=== PATIENT | female | born 1985 | race Caucasian/White ===

== ENCOUNTER → 2017-04-19 15:42 | Outpatient (CLI) | payer OTHER, SELFPAY ==
[2017-04-19 16:42] LABS: Basophils % 0.3 % (0.1-2.0); Eosinophils # 0.2 K/mm3 (0.0-0.4); Eosinophils % 2.5 % (0.1-12.0); Hematocrit 36.6 % (37.0-47.0); Hemoglobin 12.4 g/dL (12.2-16.2); Lymphocytes # 2.6 K/mm3 (0.7-4.5); Lymphocytes % 31.4 K/mm3 (10-50); Mean Corpuscular Hemoglobin 29.9 pg (27.0-31.2); Mean Corpuscular Volume 88.2 fl (81-99); Mean Platelet Volume 7.9 fl (7.4-10.4); Monocytes # 0.4 K/mm3 (0.1-1.0); Monocytes % 4.9 % (1.7-9.3); Neutrophils # 5.1 K/mm3 (1.8-7.8); Neutrophils % 60.8 % (37.0-80.0); Platelet Count 244 K/mm3 (142-424); Red Blood Count 4.15 M/mm3 (4.20-5.40); Red Cell Distribution Width 13.2 % (11.5-17.5); White Blood Count 8.4 K/mm3 (4.8-10.8)
[2017-04-21 19:05] LABS: HIV Screen 4th Generation wRfx Non Reactive (Non Reactive); Rapid Plasma Reagin Ab Titer Non Reactive (NonRea<1:1)
[2017-04-21 19:06] LABS: Hepatitis B Surface Antigen Negative (Negative); Hepatitis C Antibody <0.1 s/co ratio (0.0-0.9); Rubella Antibodies, IgG 6.79 index (Immune >0.99)
== END ==
PROVIDERS: PCP Family Medicine; Visit Provider Nurse Practitioner Obstetrics & Gynecology
DX: Z34.90 Encounter for supervision of normal pregnancy, unspecified, unspecified trimester (principal)
CPT/HCPCS: 36415; 85025; 86592; 86703; 86762; 86850; 87340; 87380; G0432

== ENCOUNTER → 2017-05-03 12:24 | Outpatient (CLI) | payer OTHER, SELFPAY ==
[2017-05-03 13:17] LABS: HCG,Quantitative 32952 mIU/mL
== END ==
PROVIDERS: Visit Provider Nurse Practitioner Obstetrics & Gynecology
DX: Z34.90 Encounter for supervision of normal pregnancy, unspecified, unspecified trimester (principal); Z3A.01 Less than 8 weeks gestation of pregnancy
CPT/HCPCS: 36415; 84702

== ENCOUNTER → 2017-05-05 08:10 | Outpatient (CLI) | payer OTHER, SELFPAY ==
[2017-05-05 09:26] LABS: HCG,Quantitative 29883 mIU/mL
== END ==
PROVIDERS: Visit Provider Nurse Practitioner Obstetrics & Gynecology
DX: Z34.90 Encounter for supervision of normal pregnancy, unspecified, unspecified trimester (principal)
CPT/HCPCS: 36415; 84702

== ENCOUNTER 2017-05-07 09:46 | Day surgery (SDC) | payer OTHER, SELFPAY ==
[2017-05-07] VITALS (11 sets, daily range): BP systolic 110–129; BP diastolic 61–86; PULSE 60–98; RESP 12–24; TEMP 36.4–36.6; O2SAT 95–100; BMI 24.8
[2017-05-07 10:40] LABS: Basophils % 0.2 % (0.1-2.0); Eosinophils # 0.2 K/mm3 (0.0-0.4); Eosinophils % 2.2 % (0.1-12.0); Hematocrit 44.5 % (37.0-47.0); Hemoglobin 14.8 g/dL (12.2-16.2); Lymphocytes # 2.1 K/mm3 (0.7-4.5); Lymphocytes % 25.2 K/mm3 (10-50); Mean Corpuscular HGB Conc 33.2 g/dL (31.8-35.4); Mean Corpuscular Hemoglobin 30.2 pg (27.0-31.2); Mean Corpuscular Volume 91.1 fl (81-99); Mean Platelet Volume 7.3 fl (7.4-10.4); Monocytes # 0.4 K/mm3 (0.1-1.0); Monocytes % 5.3 % (1.7-9.3); Neutrophils # 5.5 K/mm3 (1.8-7.8); Neutrophils % 67.1 % (37.0-80.0); Platelet Count 268 K/mm3 (142-424); Red Blood Count 4.89 M/mm3 (4.20-5.40); Red Cell Distribution Width 13.2 % (11.5-17.5); White Blood Count 8.2 K/mm3 (4.8-10.8)
[2017-05-07 10:46] LABS: Anion Gap -0.6 mEq/L (5-15); Blood Urea Nitrogen 12 mg/dL (7-18); Carbon Dioxide 28 mmol/L (21.0-32.0); Chloride 101 mmol/L (98-107); Creatinine Clearance Estimated 112 mL/min (0-300); Creatinine,Serum 0.79 mg/dL (0.55-1.02); Estimated Glomerular Filt Rate 84 ml/min (>60); GFR (African American) 101 ML/MIN (>60); Glucose 84 mg/dL (74-106); Potassium 3.4 mmoL/L (3.5-5.1); Sodium 125 mmol/L (136-145)
--- NOTE | 2017-05-07 12:08 | HMH.ANESCL ---
[facility] Anesthesia Checklist - Structural Data Admitted From: Home Planned Operative Procedure/s: d/e Consent for Planned Operative Procedure(s) Verified: Yes Verified Documents: Surgical Consent - Airway Assessment C-Spine Mobility Assessed: Yes TMJ Mobility Assessed: Yes Dentition: Good Dentition - Neurological Assessment Level of Consciousness: Awake, Alert - Anesthesia Plan Anesthesia Risk discussed: Yes Anesthesia Plan: Verified ASA Class: I Anesthesia Type: General [facility] Anesthesia HX I have reviewed the patient's past medical history: Yes Medical History: Denies:: Anxiety, Cancer, Diabetes Mellitus Type 1, Diabetes Mellitus Type 2, Hypertension, MRSA, Seizures Other Medical History: Reports: Thyroid Disease. Denies: Blood Transfusion Reaction Amputation: No Fractures: No *Family Hx:: Thyroid Disorder, Hypertension, Hyperlipidemia, Asthma, Cancer, Diabetes
--- NOTE | 2017-05-07 12:10 | P.PN_ITS ---
[facility] Anesthesia Record Part II Discharge Time: 12:35 Destination: [facility] PACU nurse assessment reviewed?: Yes Patient Condition:: Good Anesthesia Complications:: None
--- NOTE | 2017-05-07 12:10 | P.PN_ITS ---
[facility] Anesthesia Record Part I Intake, IV Amount: 700 Estimated blood loss (mL): 50 Urine output (mL): 25 Blood Pressure: 114/61 SaO2: 98 Pulse Rate: 61 Respiratory Rate: 12 Temperature: 97.5 F Patient is:: Awake, Stable Stable to PACU at:: 12:05
--- NOTE | 2017-05-07 12:10 | HMH.ANESII ---
[facility] Anesthesia Record Part II Discharge Time: 12:35 Destination: [facility] PACU nurse assessment reviewed?: Yes Patient Condition:: Good Anesthesia Complications:: None
--- NOTE | 2017-05-09 08:53 | P.OP_ITS ---
Date of procedure: 05/07/17 Pre-op Diagnosis:: Missed Post-op Diagnosis:: Missed Procedure performed:: Dilation and evacuation with [place] suction Surgeon:: Jay Godfrey MD PANEL MONITOR:: Quintin Burrell Anesthesia: LMA Estimated blood loss (mL): 50 Clinical Note:: She is a 31-year-old 2 para 1 who was approximately 8 weeks gestational age. She was seen in my office and had an ultrasound that showed a fetus approximately 6 weeks and 4 there was no heart rate activity. We decided to follow her beta hCGs over couple of days and these have gone down. Repeat on morning shows no heart rate activity. The fetus looked quite hydropic. As result of that she was offered dilation and evacuation. Risks and benefits of surgery were discussed with the patient prior to surgery. Operative findings:: She is known to have a bicornuate uterus. The fetus was on the left side of the uterus. The uterus itself was bulky and anteverted. Operative note:: She was taken to the operating room where LMA anesthesia was found be adequate. She was prepped and draped in the normal sterile fashion in the lithotomy position. A weighted speculum was placed in the vagina and the anterior lip of the cervix was grasped with a tenaculum. Sauceda dilators used to dilate the cervix to approximately 9 mm. I made sure that I was in the left hand side of the cornua where the fetus was located. Using a 9 mm curved [place] suction curette I evacuated the contents with good return of tissue. This was followed by a gentle curettage. She tolerated the procedure well and was taken to the recovery room in excellent condition. All sponge and instrument counts were correct. The estimated blood loss was less than 50 cc. Condition: stable Disposition: PACU Specimens:: Products of conception Complications:: None
== END 2017-05-07 13:45 | disposition home or self-care (01) ==
LOC: OR 09:47
PROVIDERS: PCP Family Medicine; Visit Provider Nurse Practitioner Obstetrics & Gynecology
PROC: (CPT 59820; principal; 2017-05-07 11:30)
DX: O02.1 Missed abortion (principal)
CPT/HCPCS: 59820; 80048; 85025; 96372; 96374; J2405

== ENCOUNTER → 2017-08-03 15:40 | Outpatient (CLI) | payer OTHER, SELFPAY ==
--- NOTE | 2017-08-03 15:42 | US_ITS ---
US transvaginal HISTORY: ITS.REASON: check for retained product ORDERING PHYSICIAN: Swati Xiao MD PATIENT AGE: 31 years Comparison: FINDINGS: The uterus measures 11 x 5 x 6 cm. Combined endometrial thickness is 11 mm. In the mid to lower aspect of the endometrial canal there is linear area of bright echogenicity with posterior acoustical shadowing. There is some minimal areas of increased echogenicity more inferior to this region within the endometrium in the lower uterine segment. This may be related to gas within the endometrium. The patient does not have an IUD which could also cause this appearance. Short-term follow-up recommended to confirm resolution. The patient has had manipulation of the cervix with removal of possible products of conception earlier this day. The right ovary is 3 x 1.7 cm. The left ovary is 2.4 x 1.6 cm. No cul-de-sac fluid apparent. IMPRESSION: Mildly enlarged uterus with an increased echogenicity within the endometrium in the mid and lower segment with posterior acoustical shadowing which may be related to endometrial gas. Follow-up suggested to confirm resolution
== END ==
PROVIDERS: PCP Family Medicine; Visit Provider Obstetrics & Gynecology
DX: R10.9 Unspecified abdominal pain (principal); R10.2 Pelvic and perineal pain; O73.1 Retained portions of placenta and membranes, without hemorrhage; N93.9 Abnormal uterine and vaginal bleeding, unspecified
CPT/HCPCS: 76830

== ENCOUNTER → 2017-08-21 13:43 | Outpatient (CLI) | payer OTHER, SELFPAY ==
[2017-08-21 13:45] LABS: Microscopic, Urine URINE MICROSCOPIC (MICROSCOPIC)
[2017-08-21 14:02] LABS: Appearance,Urine SL CLOUDY (Clear); Bilirubin,Urine Negative (Negative); Blood, Urine 1+ (Negative); Color,Urine YELLOW (Yellow); Glucose,Urine (UA) Negative (Negative); Ketones,Urine Negative (Negative); Leukocyte Esterase,Urine 1+ (Negative); Nitrate,Urine Negative (Negative); Protein,Urine Negative (Negative); Urobilinogen,Urine 0.2 EU/dl (0.2)
[2017-08-21 14:17] LABS: Bacteria,Urine 1+ /lpf; Squamous Epithelial Cell,Urine Occasional #/hpf (0-5)
== END ==
PROVIDERS: Visit Provider Urology
DX: R10.9 Unspecified abdominal pain (principal); R10.2 Pelvic and perineal pain
CPT/HCPCS: 81001; 87086; 87088; 87186

== ENCOUNTER → 2018-06-13 08:14 | Outpatient (CLI) | payer OTHER, SELFPAY ==
--- NOTE | 2018-06-13 08:17 | US_ITS ---
US abdomen limited History:Right upper quadrant pain with nausea Ordering Physician:Ras Maravilla MD Patient Age: 32 years Comparison:None Findings: Pancreas:Unremarkable. No obvious mass or abnormal fluid collection. No ductal dilatation Liver:Unremarkable. No obvious mass or abnormal fluid collection. No ductal dilatation Right Kidney:Unremarkable. Normal size and echogenicity. No hydronephrosis Gallbladder:No gallstones, gallbladder wall thickening, pericholecystic fluid, or biliary dilatation. There are some low-level echoes within the gallbladder which could be due to concentrated bile or small amount of sludge Impression: Low level gallbladder echoes which may be due to small amount sludge or concentrated bile of questionable clinical significance otherwise Unremarkable gallbladder/right upper quadrant ultrasound
== END ==
PROVIDERS: PCP Family Medicine; Visit Provider Family Medicine
DX: R11.0 Nausea (principal)
CPT/HCPCS: 76705

== ENCOUNTER → 2019-02-21 08:31 | Outpatient (CLI) | payer OTHER, SELFPAY ==
--- NOTE | 2019-02-21 08:34 | US_ITS ---
PROCEDURE: US TRANSVAGINAL CLINICAL INDICATION: c/o pelvic pain/bloating ER status calculus COMPARISON: TRANVAG US transvaginal from 08/03/2017 FINDINGS: UTERUS: 8cm x 5cmx 3cm with a combined endometrial thickness of 5.8mm LEFT OVARY: [id number] with a volume of 11.5ml. RIGHT OVARY: [id number] with a volume of 9.8ml. Incidental note is made of a bicornuate uterus. No uterine mass evident. There is a nabothian cyst at 15 mm. There is a small amount of cul-de-sac fluid. There are small bilateral ovarian follicles. There is bilateral ovarian blood flow. IMPRESSION: Bicornuate uterus with small amount of fluid in the cul-de-sac and small bilateral ovarian follicles. No dominant ovarian cyst evident Dictated by: Kurtis Emery MD 02/21/2019 15:26 Electronically signed by Kurtis Emery MD in [place] 02/21/2019 15:26
--- NOTE | 2019-02-21 15:39 | CT_ITS ---
PROCEDURE: CT ABDOMEN PELVIS WO CON CLINICAL INDICATION: LOWER ABD PAIN Lower abdominal pain and bloating, hematuria COMPARISON: No exams were available for comparison TECHNIQUE: Axial images obtained with sagittal and coronal reformats. All CT scans at the facility use one or more dose reduction, viz: automated exposure control, ma/kV adjustment per patient size (including targeted exams where dose is matched to indication, i.e. head), or iterative reconstruction technique. FINDINGS: LOWER THORAX: There are mild atelectatic changes in the left lung base posteriorly. Bilateral breast implants are noted. Abdomen and pelvis: The liver, gallbladder, spleen, adrenal glands, pancreas, and kidneys have an unremarkable unenhanced appearance. No renal or ureteral calculi. No hydronephrosis. There are few scattered small mesenteric and retroperitoneal lymph nodes which are nonspecific. There is a small umbilical hernia which contains fat. The appendix has an unremarkable appearance There is diverticulosis of the descending and sigmoid colon with moderate thickening of the sigmoid colon and stranding of the pericolic fat consistent with acute diverticulitis. No abscess or perforation evident. Hyperdensity is noted within the few sigmoid diverticula. There is a small amount of fluid in the cul-de-sac. No acute bony anomalies. Bulging disc is present at L5-S1 with small central disc protrusion slightly eccentric to the right. IMPRESSION: 1. Acute diverticulitis of the sigmoid colon. No evidence of abscess or perforation. There is a small amount fluid in the cul-de-sac. Diverticulosis of the descending and sigmoid colon 2. Scattered small mesenteric and retroperitoneal lymph nodes nonspecific. Dictated by: Kurtis Emery MD 02/21/2019 16:26 Electronically signed by Kurtis Emery MD in [place] 02/21/2019 16:26
[2019-02-21 16:18] LABS: Basophils % 0.2 % (0.1-2.0); Eosinophils # 0.2 K/mm3 (0.0-0.4); Eosinophils % 1.7 % (0.1-12.0); Hematocrit 42.1 % (37.0-47.0); Hemoglobin 14.2 g/dL (12.2-16.2); Lymphocytes # 2.3 K/mm3 (0.7-4.5); Lymphocytes % 17.2 % (10-50); Mean Corpuscular HGB Conc 33.7 g/dL (31.8-35.4); Mean Corpuscular Hemoglobin 30.2 pg (27.0-31.2); Mean Corpuscular Volume 89.4 fl (81-99); Mean Platelet Volume 8.1 fl (7.4-10.4); Monocytes # 0.8 K/mm3 (0.1-1.0); Monocytes % 5.9 % (1.7-9.3); Neutrophils # 9.9 K/mm3 (1.8-7.8); Neutrophils % 74.9 % (37.0-80.0); Platelet Count 286 K/mm3 (142-424); Red Blood Count 4.71 M/mm3 (4.20-5.40); Red Cell Distribution Width 12.5 % (11.5-17.5); White Blood Count 13.2 K/mm3 (4.8-10.8)
[2019-02-21 16:52] LABS: Alanine Aminotransferase 12 U/L (12-78); Albumin Level 3.7 gm/dL (3.4-5.0); Albumin/Globulin Ratio 1.1 (1.1-1.8); Alkaline Phosphatase 66 U/L (46-116); Anion Gap 13.6 mEq/L (5-15); Aspartate Amino Transferase 8 U/L (15-37); Bilirubin,Total 0.7 mg/dL (0.2-1.0); Carbon Dioxide 30 mmol/L (21.0-32.0); Chloride 100 mmol/L (98-107); Creatinine,Serum 0.97 mg/dL (0.55-1.02); Estimated Glomerular Filt Rate 65 ml/min (>60); GFR (African American) 79 ML/MIN (>60); Globulin 3.4 gm/dl (1.3-3.2); Glucose 88 mg/dL (74-106); Potassium 3.6 mmoL/L (3.5-5.1); Sodium 140 mmol/L (136-145); Total Protein,Serum 7.1 gm/dL (6.4-8.2)
[2019-02-21 17:00] LABS: Blood Urea Nitrogen 20 mg/dL (7-18)
== END ==
PROVIDERS: PCP Family Medicine; Visit Provider Nurse Practitioner Obstetrics & Gynecology
DX: R10.2 Pelvic and perineal pain (principal)
CPT/HCPCS: 36415; 74176; 76830; 80053; 85025

== ENCOUNTER 2019-07-11 17:55 | Emergency (ER) | payer OTHER, SELFPAY ==
[2019-07-11 17:56] VITALS: BP 159/80; PULSE 73; RESP 16; O2SAT 100; BMI 25.0
--- NOTE | 2019-07-11 17:58 | ECG_ITS ---
APPROVED REPORT Exam: Resting ECG HR:70 bpm ECG Measurements Heart Rate 70 AXES MT 156 P 67 QRSd 98 QRS 14 QT 406 T 70 QTc 438 <Conclusion> Sinus rhythm with sinus arrhythmia with premature ventricular complexes or fusion complexes Otherwise normal ECG Electronically signed by : Rodney Bailon, 07/12/2019 22:24:26
--- NOTE | 2019-07-11 18:01 | CT_ITS ---
PROCEDURE: CT ANGIO CHEST CLINCIAL INDICATION: chest pain Centralized chest pain radiating into the throat with shortness of air, previous smoker COMPARISON: No exams were available for comparison TECHNIQUE: IV Contrast: 70ML OPTIRAY 350 Axial images obtained with sagittal and coronal reformats. All CT scans at the facility use one or more dose reduction, viz: automated exposure control, ma/kV adjustment per patient size (including targeted exams where dose is matched to indication, i.e. head), or iterative reconstruction technique. FINDINGS: HEART AND MEDIASTINAL STRUCTURES: Unremarkable. LUNGS AND PLEURAL SPACES: No lobar consolidation or collapse. There are minimal atelectatic changes in left lung base. BONY STRUCTURES: No acute bony abnormalities apparent. UPPER ABDOMEN: Unremarkable. ADDITIONAL FINDINGS: There are bilateral subpectoral breast prosthesis IMPRESSION: No acute finding Dictated by: Kurtis Emery MD 07/11/2019 20:52 Electronically signed by Kurtis Emery MD in [facility] 07/11/2019 20:52
--- NOTE | 2019-07-11 18:05 | PC.NURSE ---
UPON ARRIVAL TO ED, PT RATED PAIN 6/10. PT NOW STATES THAT THE PAIN HAS SUBSIDED. PT STILL SEEMS FATIGUED. PT AMBULATING TO BATHROOM AT THIS TIME TO PROVIDE A URINE SAMPLE.
[2019-07-11 18:13] LABS: Basophils # 0.1 K/mm3 (0-0.2); Basophils % 0.5 % (0.1-2.0); Eosinophils # 0.3 K/mm3 (0.0-0.4); Eosinophils % 2.9 % (0.1-12.0); Hematocrit 37.4 % (37.0-47.0); Hemoglobin 14.7 g/dL (12.2-16.2); Lymphocytes # 4.1 K/mm3 (0.7-4.5); Lymphocytes % 38.3 % (10-50); Mean Corpuscular HGB Conc 39.2 g/dL (31.8-35.4); Mean Corpuscular Volume 86.7 fl (81-99); Mean Platelet Volume 7.9 fl (7.4-10.4); Monocytes # 0.6 K/mm3 (0.1-1.0); Monocytes % 5.6 % (1.7-9.3); Neutrophils # 5.6 K/mm3 (1.8-7.8); Neutrophils % 52.8 % (37.0-80.0); Platelet Count 269 K/mm3 (142-424); Red Blood Count 4.32 M/mm3 (4.20-5.40); Red Cell Distribution Width 14.2 % (11.5-17.5); White Blood Count 10.6 K/mm3 (4.8-10.8)
[2019-07-11 18:13] LABS: Microscopic, Urine URINE MICROSCOPIC (MICROSCOPIC)
[2019-07-11 18:17] LABS: Appearance,Urine CLEAR (Clear); Bilirubin,Urine Negative (Negative); Blood, Urine Negative (Negative); Color,Urine YELLOW (Yellow); Glucose,Urine (UA) Negative (Negative); Ketones,Urine Negative (Negative); Leukocyte Esterase,Urine Negative (Negative); Nitrate,Urine Negative (Negative); Protein,Urine Negative (Negative); Specific Gravity, Urine 1.015 (1.005-1.030); Urobilinogen,Urine 0.2 EU/dl (0.2)
[2019-07-11 18:19] LABS: Amylase 87 U/L (30-110); Lipase 144 U/L (23-300)
[2019-07-11 18:19] LABS: Urine Pregnancy, HCG Qual. Negative (Negative)
--- NOTE | 2019-07-11 18:20 | PC.NURSE ---
REASSESSED PT'S PAIN... PT STATES THAT PAIN IS STILL NON EXISTENT AT THIS TIME. PT RESTING UPRIGHT IN BED.
[2019-07-11 18:21] LABS: RBC,Urine Occasional #/hpf (0-3); Squamous Epithelial Cell,Urine Occasional #/hpf (0-5)
--- NOTE | 2019-07-11 18:36 | PC.NURSE ---
Patient to radiology.
[2019-07-11 18:40] LABS: Troponin I < 0.01 ng/ml (0.00-0.034)
--- NOTE | 2019-07-11 18:41 | HMH.EDCP ---
ED Disposition Clinical Impression: Chest pain, Atypical chest pain, Panic attack as reaction to stress Disposition: Still a Patient Condition on Discharge: Good Additional Instructions: Work excuse to come back next Sunday Prescriptions: LORazepam [Ativan 1mg tablet] 1 mg PO TID PRN 8 Days #26 tablet PRN Reason: Agitation Pantoprazole Sodium [Protonix 40mg tablet] 40 mg PO DAILY 30 Days #30 tab Transmission Status: Pending to [facility] Sertraline HCl [Zoloft 50mg tablet] 50 mg PO DAILY 30 Days #30 tab Transmission Status: Pending to [facility] Referrals: Provider,Referral, [Referring] - - Critical Care Critical Care Time: No Attestation: On , the high probability of a clinically significant, sudden or life threatening deterioration of the following system(s) required my full and direct attention, intervention and personal management. The time I documented below is in addition to time spent performing reported procedures but includes the following listed in this critical care notation. Medical Decision Making - Medical Records Medical records reviewed: Yes: I reviewed the patient's medical records. - Jose Angel Inquiry Pt receiving controlled substance: No Vital Signs: 07/11/19 17:56 07/11/19 19:03 Pulse Rate [Radial] 73 71 Respiratory Rate 16 18 Blood Pressure [Right Arm] 159/80 H 138/95 H Blood Pressure Mean [Right Arm] 106 109 Blood Pressure Source [Right Arm] Automatic Cuff Blood Pressure Position [Right Arm] Sitting Sitting 02 Sat by Pulse Oximetry 100 98 Oxygen Delivery Method Room Air Room Air - Lab Data Lab results reviewed: Yes: I reviewed the patient's lab results. Lab Results 07/11/19 18:00: WBC 10.6, RBC 4.32, Hgb 14.7, Hct 37.4, MCV 86.7, MCH 34.0 H, MCHC 39.2 H, RDW 14.2, Plt Count 269, MPV 7.9, Neut % (Auto) 52.8, Lymph % (Auto) 38.3, Bradley % (Auto) 5.6, Eos % (Auto) 2.9, Baso % (Auto) 0.5, Neut # (Auto) 5.6, Lymph # (Auto) 4.1, Bradley # (Auto) 0.6, Eos # (Auto) 0.3, Baso # (Auto) 0.1 07/11/19 18:00: Troponin I < 0.01, Amylase 87, Lipase 144 07/11/19 18:00: TSH 6.62 H 07/11/19 18:00: Sodium 137, Potassium 3.8, Chloride 100, Carbon Dioxide 29, Anion Gap 11.8, BUN 25 H, Creatinine 1.20 H, Estimated Creat Clear 73, Estimated GFR 51 L, Est GFR ( Amer) 62, Glucose 95, Calcium 10.1 07/11/19 18:10: Urine Color Yellow, Urine Appearance Clear, Urine pH 8.0, Ur Specific Holly 1.015, Urine Protein Negative, Urine Glucose (UA) Negative, Urine Ketones Negative, Urine Blood Negative, Urine Nitrate Negative, Urine Bilirubin Negative, Urine Urobilinogen 0.2, Ur Leukocyte Esterase Negative, Urine RBC Occasional, Urine WBC None, Ur Squamous Epith Cells Occasional, Urine Bacteria None 07/11/19 18:10: Urine HCG, Qual Negative Result diagrams: 07/11/19 18:00 07/11/19 18:00 Orders (Tests/Meds): ED MEDICATIONS Generic Name Dose Route Start Last Admin Trade Name Freq PRN Reason Stop Dose Admin Sodium Chloride 1,000 mls @ 999 mls/hr 07/11/19 19:15 07/11/19 19:08 Sod Chlor 0.9% 1000ml Bag IV 07/11/19 20:15 999 mls/hr .Q1H1M DENA Administration Sodium Chloride 10 ml 07/11/19 18:02 07/11/19 18:10 Sodium Chloride 0.9% 10ml Vial IV 08/10/19 18:01 10 ml NEEDED PRN Administration to Dilute Lorazepam inj Sodium Chloride 10 ml 07/11/19 18:04 Sodium Chloride 0.9% 10ml Vial IV 08/10/19 18:03 NEEDED PRN dilute protonix Discontinued Medications Generic Name Dose Route Start Last Admin Trade Name Freq PRN Reason Stop Dose Admin Aspirin 324 mg 07/11/19 18:04 07/11/19 18:09 Aspirin 81mg Chewable Tablet PO 07/11/19 18:05 324 mg ONCE ONE Administration Ioversol 70 ml 07/11/19 18:57 07/11/19 18:58 Rad-Optiray 350 100ml Vial IV 07/11/19 18:58 70 ml ONCE ONE Administration Protocol Lorazepam 0.5 mg 07/11/19 18:02 07/11/19 18:09 Ativan 2mg/Ml Vial IV 07/11/19 18:03 0.5 mg ONCE ONE Admini
[2019-07-11 18:43] LABS: Anion Gap 11.8 mEq/L (5-15); Blood Urea Nitrogen 25 mg/dl (7-17); Calcium 10.1 mg/dl (8.4-10.2); Carbon Dioxide 29 mmol/L (22.0-30.0); Chloride 100 mmol/L (98-107); Creatinine Clearance Estimated 73 mL/min (50-200); Estimated Glomerular Filt Rate 51 ml/min (>60); GFR (African American) 62 ML/MIN (>60); Glucose 95 mg/dl (74-100); Potassium 3.8 mmoL/L (3.5-5.1); Sodium 137 mmol/L (136-145)
[2019-07-11 18:55] LABS: Thyroid Stimulating Hormone 6.62 uIU/mL (0.465-4.68)
[2019-07-11 19:03] VITALS: BP 138/95; PULSE 71; RESP 18; O2SAT 98
[2019-07-11 20:36] VITALS: BP 134/64; PULSE 70; RESP 16; TEMP 36.7; O2SAT 100
== END 2019-07-11 20:20 | disposition home or self-care (01) ==
PROVIDERS: Emergency Provider Family Medicine; PCP Family Medicine
DX: R07.89 Other chest pain (principal); F41.0 Panic disorder [episodic paroxysmal anxiety]; E03.9 Hypothyroidism, unspecified; F17.210 Nicotine dependence, cigarettes, uncomplicated; Z79.899 Other long term (current) drug therapy
CPT/HCPCS: 71275; 80048; 81001; 81025; 82150; 83690; 84443; 84484; 85025; 93005; 96365; 96375; 99284; Q9967

== ENCOUNTER → 2019-07-21 08:58 | Outpatient (CLI) | payer OTHER, SELFPAY ==
--- NOTE | 2019-07-21 | CA_ITS ---
APPROVED REPORT EXAM: Comprehensive 2D, Doppler, and color-flow Echocardiogram [employer] Inspector: Brittni Martinez, RT(R) Ht: 5 ft 6 in Wt: 157lbs BSA: 1.80 BP: 138/59 mmHg Indications: PVC's, history of smoking, Headache, anxiety, ordered as a bubble study Echo Enhancing Agent Indication: Rule Out Septal Defect Agent(s) / Amount(s) Used: Agitated Saline 15 cc 2D Dimensions LVOT 2.04 cm (M/F) 1.5-2.5 M-Mode Dimensions RVDd 2.07 cm (0.9-2.6) LVDd 4.82 cm (3.5-5.7) LVDs 3.54 cm (3.5-5.7) IVSd 0.88 cm (0.6-1.1) PWd 0.66 cm (0.6-1.1) EF (Teich) 51.80% FS 26.60% EDV (Teich) 108.60 mL ESV (Teich) 52.30 mL Left Ventricle Left atrium is normal size, left ventricle is normal size, there is no concentric left ventricular hypertrophy, visually estimated ejection fraction 55% with no regional wall motion abnormality. Diastolic parameters are inconclusive. Right Ventricle Right atrium and right ventricular normal size and contractility. Atria Intra-atrial septum is intact, there is no flow across the atrial septum, agitated saline contrast study fails to identify intracardiac shunt. Aortic Valve Aortic valve is grossly normal, there is no aortic stenosis or aortic insufficiency. Mitral Valve Mitral valve is grossly normal, there is mild mitral regurgitation. Tricuspid Valve Tricuspid valve grossly normal, there is mild tricuspid regurgitation. Tricuspid regurgitation jet velocity is inadequate for calculation of the right ventricular systolic pressure. Pulmonic Valve Pulmonic valve is poorly visualized. Great Vessels Aortic root is normal size. Pericardium No significant pericardial effusion noted. Conclusion 1. Technically difficult study because of the patient fact in poor acoustic windows 2. Normal left ventricular size, preserved left ventricular systolic function, visually estimated ejection fraction 55% with no regional wall motion abnormality, diastolic parameters are inconclusive. 3. Mild mitral and tricuspid regurgitation. 4. No significant pericardial effusion noted. Electronically signed by : Juan Lutz, 07/21/2019 21:03:48
== END ==
PROVIDERS: PCP Internal Medicine Adolescent Medicine; Visit Provider Internal Medicine Adolescent Medicine
DX: I49.3 Ventricular premature depolarization (principal)
CPT/HCPCS: 93306

== ENCOUNTER → 2020-01-13 18:46 | Outpatient (CLI) | payer OTHER, SELFPAY ==
[2020-01-13 20:49] LABS: Alanine Aminotransferase 14 U/L (12-78); Albumin Level 4.8 g/dl (3.5-5.0); Albumin/Globulin Ratio 1.7 (1.1-1.8); Alkaline Phosphatase 76 U/L (38-126); Anion Gap 16.2 mEq/L (5-15); Aspartate Amino Transferase 27 U/L (14-36); Bilirubin,Total 0.4 mg/dl (0.2-1.3); Blood Urea Nitrogen 19 mg/dl (7-17); Calcium 9.7 mg/dl (8.4-10.2); Carbon Dioxide 29 mmol/L (22.0-30.0); Chloride 98 mmol/L (98-107); Estimated Glomerular Filt Rate 56 ml/min (>60); GFR (African American) 68 ML/MIN (>60); Globulin 2.8 g/dL (1.3-3.2); Glucose 58 mg/dl (74-100); Potassium 4.2 mmoL/L (3.5-5.1); Sodium 139 mmol/L (136-145); Total Protein,Serum 7.6 g/dl (6.3-8.2)
[2020-01-13 21:05] LABS: T4 (Thyroxine) 8.2 ug/dl (5.53-11.0); Triiodothryronine (T3) Uptake 36 % (23.5-40.5)
[2020-01-13 21:19] LABS: Thyroid Stimulating Hormone 1.97 uIU/mL (0.465-4.68)
[2020-01-13 21:38] LABS: Vitamin B12 671 pg/mL (239-931)
== END ==
PROVIDERS: Visit Provider Internal Medicine Adolescent Medicine
DX: E03.9 Hypothyroidism, unspecified (principal); I49.3 Ventricular premature depolarization
CPT/HCPCS: 80053; 82607; 84436; 84443; 84479

== ENCOUNTER → 2020-01-22 07:52 | Outpatient (CLI) | payer OTHER, SELFPAY ==
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
== END ==
PROVIDERS: PCP Internal Medicine Adolescent Medicine; Visit Provider Anesthesiology
DX: M54.2 Cervicalgia (principal)
CPT/HCPCS: 72141; 76376

== ENCOUNTER 2020-01-23 13:10 | Day surgery (SDC) | payer OTHER, SELFPAY ==
[2020-01-23 13:10] VITALS: BP 143/95; PULSE 66; RESP 20; O2SAT 96; BMI 28.2
[2020-01-23 13:14] VITALS: BP 125/85; PULSE 85; RESP 18; O2SAT 98
[2020-01-23 13:16] VITALS: BP 133/74; PULSE 89; RESP 18; O2SAT 98
--- NOTE | 2020-01-23 13:21 | HMH.PMPROC ---
- Procedure Date: 01/23/20 Time: 13:21 Anesthesiologist:: Barrett Wang MD Complications:: None Pre-procedure Diagnosis:: Degenerative disc disease of the cervical spine with cervical radiculopathy symptoms Post-procedure Diagnosis:: Same Indications for Procedure:: This patient is a pleasant 34-year-old white female who we are treating for neck pain with cervical radicular symptoms. She does have increasing pain radiating to the right shoulder. She does have muscle spasms down her right side. Her MRI shows 1. C4-C5: Minimal left paracentral disc protrusion and left paracentral ridging of the superior aspect of C5. 2. C5-C6: Mild degenerative disc disease with a broad-based small central and left paracentral disc protrusion. There may be some minimal superior extrusion of the disc at this area as well. The protruding disc is causing compression upon the central and left aspect of the cord with some flattening of the cord and resultant canal stenosis of 8 mm. There is mild left lateral recess narrowing. 3. C6-C7: Small central disc protrusion slightly eccentric toward the left with some mild central and left paracentral flattening of the cord. There is canal stenosis at 9 mm. She is failed previous therapy. We will do a cervical epidural steroid injection today to help her with her pain symptoms. Procedure Details:: Cervical epidural steroid injection under fluoroscopy Informed consent was obtained and the risks and benefits of the procedure was explained to the patient. The patient was taken to the procedure room placed prone on the procedure table. The neck was prepped using ChloraPrep. The skin and subcutaneous tissues were anesthetized using lidocaine. I placed a 18-gauge epidural needle into the C5-C6 interspace and advanced using [id number] to air and fluoroscopic guidance. After confirmation of needle placement in the epidural space with dye, I injected 3 mL's lidocaine 1.5% and Depo-Medrol 80 mg. The patient tolerated the procedure well with no complications. Plan and Disposition:: We will follow-up with her in 2 weeks. Will reevaluate her symptoms at that time.
[2020-01-23 13:25] VITALS: BP 144/95; PULSE 66; RESP 20; O2SAT 96
== END 2020-01-23 13:25 | disposition home or self-care (01) ==
LOC: SC.PAINP 13:11
PROVIDERS: Visit Provider Anesthesiology
DX: M50.10 Cervical disc disorder with radiculopathy, unspecified cervical region (principal); K21.9 Gastro-esophageal reflux disease without esophagitis; E03.9 Hypothyroidism, unspecified; Z72.0 Tobacco use
CPT/HCPCS: 62321; J1040; Q9966

== ENCOUNTER 2020-02-20 12:29 | Day surgery (SDC) | payer OTHER, SELFPAY ==
[2020-02-20 12:37] VITALS: BP 132/74; PULSE 85
[2020-02-20 12:41] VITALS: BP 132/74; PULSE 85; RESP 18; O2SAT 98
--- NOTE | 2020-02-20 12:58 | HMH.PMPROC ---
- Procedure Date: 02/20/20 Time: 12:58 Anesthesiologist:: Barrett Wang MD Complications:: None Pre-procedure Diagnosis:: Degenerative disc disease of cervical spine with cervical radiculopathy symptoms Post-procedure Diagnosis:: Same Indications for Procedure:: This patient is a pleasant 34-year-old white female who we are treating for neck pain with cervical radicular symptoms. She did very well with her last cervical epidural steroid injection. She was 80% better. Her pain started to return in her neck. She presents for repeat cervical epidural steroid injection under fluoroscopy today. Procedure Details:: Cervical epidural steroid injection under fluoroscopy Informed consent was obtained and the risks and benefits of the procedure was explained to the patient. The patient was taken to the procedure room placed prone on the procedure table. The neck was prepped using ChloraPrep. The skin and subcutaneous tissues were anesthetized using lidocaine. I placed a 18-gauge epidural needle into the C5-C6 interspace and advanced using [id number] to air and fluoroscopic guidance. After confirmation of needle placement in the epidural space with dye, I injected 3 mL's lidocaine 1.5% and Depo-Medrol 80 mg. The patient tolerated the procedure well with no complications. Plan and Disposition:: We will follow-up with her in 2 weeks. Will reevaluate symptoms at that time.
[2020-02-20 13:00] VITALS: BP 130/68; PULSE 85; RESP 20; O2SAT 98
[2020-02-20 13:26] VITALS: BP 130/74; PULSE 85; RESP 20; TEMP 36.7; O2SAT 97; BMI 28.0
== END 2020-02-20 13:00 | disposition home or self-care (01) ==
LOC: SC.PAINP 12:30
PROVIDERS: PCP Nurse Practitioner Psychiatric/Mental Health; Visit Provider Anesthesiology
DX: M50.10 Cervical disc disorder with radiculopathy, unspecified cervical region (principal)
CPT/HCPCS: 62321; Q9966

== ENCOUNTER → 2020-05-12 08:28 | Outpatient (CLI) | payer OTHER, SELFPAY ==
[2020-05-12 10:10] LABS: Triiodothryronine (T3) Uptake 35 % (23.5-40.5)
[2020-05-12 10:11] LABS: Free Thyroxine Index 3.5 ug/dL (5.93-13.13); T4 (Thyroxine) 9.9 ug/dl (5.53-11.0)
[2020-05-13 14:22] LABS: Thyroid Peroxidase Antibodies <9 IU/mL (0-34)
== END ==
PROVIDERS: Visit Provider Nurse Practitioner Psychiatric/Mental Health
DX: Z13.29 Encounter for screening for other suspected endocrine disorder (principal); Z79.899 Other long term (current) drug therapy
CPT/HCPCS: 36415; 84436; 84443; 84479; 86376

== ENCOUNTER 2021-03-21 10:53 | Emergency (ER) | payer OTHER, SELFPAY ==
[2021-03-21 11:10] VITALS: BP 128/79; PULSE 92; RESP 18; TEMP 36.6; O2SAT 95; BMI 33.5
[2021-03-21 11:26] LABS: Adenovirus,PCR Not Detected (NotDetected); Bordetella Pertussis Not Detected (NotDetected); Chlamydophila Pneumoniae, PCR Not Detected (NotDetected); Coronavirus 229E Not Detected (NotDetected); Coronavirus NL63 Not Detected (NotDetected); Coronavirus OC43 Not Detected (NotDetected); Coronovirus HKU1,PCR Not Detected (NotDetected); Human Metapneumovirus Not Detected (NotDetected); Influenza A, PCR Not Detected (NotDetected); Influenza AH1, 2009 Not Detected (NotDetected); Influenza AH1, PCR Not Detected (NotDetected); Influenza AH3,PCR Not Detected (NotDetected); Influenza B, PCR Not Detected (NotDetected); Mycoplasma Pneumoniae, PCR Not Detected (NotDetected); Parainfluenza 1, PCR Not Detected (NotDetected); Parainfluenza 2, PCR Not Detected (NotDetected); Parainfluenza 3, PCR Not Detected (NotDetected); Parainfluenza 4, PCR Not Detected (NotDetected); Respiratory Syncytial Virus Not Detected (NotDetected); Rhinovirus/Enterovirus Not Detected (NotDetected)
--- NOTE | 2021-03-21 11:34 | HMH.EDUTC ---
[facility] [place] Clinical Impression: URI (upper respiratory infection) Qualifiers: URI type: unspecified URI Qualified Code(s): J06.9 - Acute upper respiratory infection, unspecified Disposition: Home, Self-Care Condition on Discharge: Good Instructions: Sore Throat, Cough, DI for Cough -- Adult Additional Instructions: *Monitor Temp, Over the counter Motrin or Tylenol as directed/as needed Tylenol every 4 hours and Motrin every 6 hours (as long as your family doctor has told you that you can take it) for fever or pain. and straight to ER if unable to lower temp less than 101.0 after medication given *Warm salt water gargles may help to soothe the throat *Throat Lozenges *Warm fluids like tea with honey may help to soothe the throat *Sleep elevated *Humidifier/Vaporizer Your throat swab was sent for culture. Those results are typically sent to your primary care. Be sure to follow up in 2-3 days with your family doctor/primary care physician if no improvement so they can review those result and treat if necessary. If you don?t have a primary care doctor, I recommend you get one but in the mean time, you will have to return to a walk in clinic Follow up IMMEDIATELY for new or worsening symptoms or no Noticeable improvement over the next 48-72 hours. 911 for difficulty breathing or swallowing You were tested for today for COVID19 your test result should be back in the next 24-48 hours, you check your results on the [facility] my health portal if you have trouble logging on you may call for assistance to help you set up an account to see your results You was given a handout with instructions for Self Quarantine and Self isolation for while you wait on test results and what to do if they are positive If you are positive the Health Dept will be contacting you also Make sure to take your Vitamins Vit. C Vit D and Zinc if you can take them Prescriptions: methylPREDNISolone [Medrol 4mg tab] 4 mg PO DIRECTED #21 tab Transmission Status: [facility] Promethazine/Dextromethorphan [Promethazine-Dm Syrup] 5 ml PO Q6H PRN #120 ml PRN Reason: Cough Transmission Status: [facility] Azithromycin [Z-Clarke 250mg Tab] 250 mg PO DIRECTED #6 tab Transmission Status: Received by [facility] Referrals: Alexis Guido MD [Primary Care Provider] - As needed Forms: Work/School Release Time of Disposition: 11:48 Medical Decision Making - Jose Angel Inquiry Pt receiving controlled substance: No Jose Angel was queried for this patient: No Vital Signs: 03/21/21 11:10 03/21/21 11:45 Temperature 97.9 F 97.9 F Temperature Source Oral Pulse Rate 92 H Pulse Rate [Left Brachial] 92 H Respiratory Rate 18 18 Blood Pressure 128/79 Blood Pressure [Left Arm] 128/79 Blood Pressure Mean [Left Arm] 95 Blood Pressure Source [Left Arm] Automatic Cuff Blood Pressure Position [Left Arm] Sitting 02 Sat by Pulse Oximetry 95 Oxygen Delivery Method Room Air - Lab Data Lab results reviewed: Yes: I reviewed the patient's lab results. Lab Results 03/21/21 11:21: Chlamy pneumoniae PCR Not detected, Adenovirus (PCR) Not detected, B. pertussis DNA (PCR) Not detected, Coronavirus OC43 (PCR) Not detected, Coronavirus HKU1 (PCR) Not detected, Coronavirus 229E (PCR) Not detected, SARS-CoV-2 (PCR) Detected A, Coronavirus NL63 (PCR) Not detected, Human Metapneumovir PCR Not detected, Influenza A (H1) PCR Not detected, Influ A (H1N1/09) PCR Not detected, Influenza A (H3) PCR Not detected, Influenza Type A (PCR) Not detected, Influenza Type B (PCR) Not detected, M. pneumoniae (PCR) Not detected, Parainfluenza 1 (PCR) Not detected, Parainfluenza 2 (PCR) Not detected, Parainfluenza 3 (PCR) Not detected, Parainfluenza 4 (PCR) Not detected, RSV (PCR) Not detected, Entero/Rhino (PCR) Not detected 03/21/21 11:21: Group A Strep Rapid Negative Orders (Tests/Meds): ORDERS Category Date Time Status Strep Screen C
[2021-03-21 11:35] LABS: Strep Scrn Group A (Rapid) Negative (Negative)
[2021-03-21 11:45] VITALS: BP 128/79; PULSE 92; RESP 18; TEMP 36.6; O2SAT 95
[2021-03-21 12:57] LABS: Coronavirus 19, PCR Detected (NotDetected)
== END 2021-03-21 11:57 | disposition home or self-care (01) ==
PROVIDERS: Emergency Provider Nurse Practitioner; PCP Internal Medicine Adolescent Medicine
DX: U07.1 COVID-19 (principal); J06.9 Acute upper respiratory infection, unspecified; F17.210 Nicotine dependence, cigarettes, uncomplicated
CPT/HCPCS: 87430; 87581; 87632; 87798; 99203; C9803; G0463; U0003; U0005

== ENCOUNTER → 2021-11-14 13:26 | Outpatient (CLI) | payer OTHER, SELFPAY ==
--- NOTE | 2021-11-14 13:30 | MR_ITS ---
FINAL REPORT CLINICAL HISTORY: SEVERE LEFT SIDED SCIATICA X2 WEEKS, NO INJURY FINDINGS: Multiplanar MR imaging of the lumbar spine was performed without contrast. On the sagittal T2-weighted images, disc degeneration is seen at L5-S1. The vertebral alignment is normal. There is no evidence of fracture. No bony mass is identified. The conus has an unremarkable appearance. No significant canal stenosis is identified. L1-2: There is no significant canal stenosis or neural foraminal narrowing. L2-3: There is no significant canal stenosis or neural foraminal narrowing. L3-4: There is no significant canal stenosis or neural foraminal narrowing. L4-5: There is no significant canal stenosis or neural foraminal narrowing. L5-S1: There is a left paracentral and left foraminal disc protrusion with left lateral recess stenosis. There is left S1 nerve root compromise. There is mild right and moderate left neural foraminal narrowing. IMPRESSION: Left paracentral and foraminal disc protrusion at L5-S1 resulting in left lateral recess stenosis, left S1 nerve root compromise and mild right and moderate left neural foraminal narrowing. Reviewed, Interpreted and Dictated by Ben Quinteros III, MD Transcribed by Jovi Montalvo Authenticated and [facility]
== END ==
PROVIDERS: PCP Internal Medicine Adolescent Medicine; Visit Provider Internal Medicine Adolescent Medicine
DX: M54.32 Sciatica, left side (principal)
CPT/HCPCS: 72148; 76376

== ENCOUNTER 2021-11-22 07:55 | Day surgery (SDC) | payer OTHER, SELFPAY ==
[2021-11-22 08:01] VITALS: BP 145/91; PULSE 81; RESP 20; O2SAT 100; BMI 32.4
[2021-11-22 09:00] VITALS: BP 151/100; PULSE 79; RESP 18; TEMP 36.7; O2SAT 98
--- NOTE | 2021-11-22 09:03 | P.PCN_ITS ---
Procedure Date: 11/22/21 Time: 09:03 Anesthesiologist:: Saulo Malone CRNA Complications:: None Pre-procedure Diagnosis:: Degenerative disc lumbar spine. Left paracentral and foraminal disc protrusion 5 S1. Left lateral recess stenosis L5-S1. Left S1 nerve root compromise. 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 Patient's MRI lumbar spine shows foraminal disc protrusion resulting in L5-S1 left lateral recess stenosis as well as S1 nerve root compromise. Patient rates her pain today 10/10. Patient describes her pain as severe, sharp, stabbing in the low back as well as left leg. Patient having difficulty with ambulation. She presents to the clinic in a wheelchair. Patient unable to sit due to severe pain in the left hip and leg. I discussed this patient with Dr. Wolfe with [facility] for spine surgery consultation. He will see her this afternoon. Procedure Details:: Details of the procedure were explained to the patient. The patient taken the procedure room placed in the prone position on the fluoroscopy table. The area over the lumbar spine was cleansed using chlorhexidine as a cleansing solution. Under fluoroscopy guidance a marker was placed in the L5-S1 intervertebral space on the left. The skin and subcutaneous tissue was anesthetized using 1% lidocaine and 25-gauge needle. Using fluoroscopy guidance a 20-gauge Touhy needle was used to access the epidural space at the L5-S1 intervertebral space. This was done by [id number]. Needle position was confirmed with an epidurogram using 1 cc of contrast dye and fluoroscopy in lateral position. At this time after negative aspiration 2 cc of 1% lidocaine and 80 mg of Depo- Medrol was injected. Needle removed. Patient tolerated the procedure without difficulty. There are no complications. Plan and Disposition:: Patient was discharged from the clinic 20 minutes post procedure. She had about 50% improvement in terms of her symptoms in the low back as well as left hip and leg at the time of discharge.
== END 2021-11-22 08:57 | disposition home or self-care (01) ==
LOC: SC.PAINP 07:56
PROVIDERS: PCP Nurse Anesthetist, Certified Registered; Visit Provider Nurse Anesthetist, Certified Registered
DX: M51.36 Other intervertebral disc degeneration, lumbar region (principal); M48.07 Spinal stenosis, lumbosacral region
CPT/HCPCS: 62323; J1040; Q9966

== ENCOUNTER → 2022-05-30 08:45 | Outpatient (CLI) | payer OTHER, SELFPAY ==
[2022-05-30 09:14] LABS: Basophils # 0.1 K/mm3 (0-0.2); Basophils % 0.9 % (0.1-2.0); Eosinophils # 0.3 K/mm3 (0.0-0.4); Hematocrit 39.9 % (37.0-47.0); Hemoglobin 12.9 g/dL (12.2-16.2); Lymphocytes # 1.8 K/mm3 (0.7-4.5); Lymphocytes % 27.2 % (10-50); Mean Corpuscular HGB Conc 32.4 g/dL (31.8-35.4); Mean Corpuscular Hemoglobin 27.1 pg (27.0-31.2); Mean Corpuscular Volume 83.8 fl (81-99); Monocytes # 0.4 K/mm3 (0.1-1.0); Monocytes % 5.3 % (1.7-9.3); Neutrophils # 4.1 K/mm3 (1.8-7.8); Neutrophils % 62.5 % (37.0-80.0); Platelet Count 345 K/mm3 (142-424); Red Blood Count 4.76 M/mm3 (4.20-5.40); White Blood Count 6.6 K/mm3 (4.8-10.8)
[2022-05-30 09:46] LABS: Alanine Aminotransferase 17 U/L (12-78); Albumin Level 4.3 g/dl (3.5-5.0); Albumin/Globulin Ratio 1.7 (1.1-1.8); Alkaline Phosphatase 75 U/L (38-126); Anion Gap 10.3 mEq/L (5-15); Aspartate Amino Transferase 25 U/L (14-36); Bilirubin,Total 0.6 mg/dl (0.2-1.3); Blood Urea Nitrogen 13 mg/dl (7-17); Carbon Dioxide 30 mmol/L (22.0-30.0); Chloride 100 mmol/L (98-107); Chol/HDL Ratio 3.7 (1-3.5); Cholesterol 167 mg/dl (140-200); Estimated Glomerular Filt Rate 70 ml/min (>60); GFR (African American) 85 ML/MIN (>60); Globulin 2.6 g/dL (1.3-3.2); Glucose 104 mg/dl (74-100); HDL Cholesterol 45 mg/dl (40-60); Potassium 4.3 mmoL/L (3.5-5.1); Sodium 136 mmol/L (136-145); Total Protein,Serum 6.9 g/dl (6.3-8.2); Triglycerides 112 mg/dl (30-150); VLDL Cholesterol 22 mg/dL (0-40)
[2022-05-30 09:56] LABS: Direct LDL Cholesterol 92.87 mg/dL (100-129)
[2022-05-30 10:02] LABS: Free Thyroxine Index 3.2 ug/dL (5.93-13.13); T4 (Thyroxine) 9.6 ug/dl (5.53-11.0); Triiodothryronine (T3) Uptake 33 % (23.5-40.5)
[2022-05-30 10:15] LABS: Thyroid Stimulating Hormone 1.99 uIU/mL (0.465-4.68)
[2022-05-30 10:35] LABS: Vitamin B12 567 pg/mL (239-931)
[2022-05-30 11:02] LABS: Hemoglobin A1C 5.4 % (4.0-6.0)
[2022-05-31 09:48] LABS: FSH 16.9 mIU/mL (.); LH 25.1 mIU/mL (.)
[2022-06-08 02:38] LABS: 1,25 Dihydroxy Vitamin D 54 pg/mL (.); 1,25-Dihydroxy, Vitamin D-2 <10 pg/mL (.); 1,25-Dihydroxy, Vitamin D-3 48 pg/mL (.)
== END ==
PROVIDERS: PCP Internal Medicine Adolescent Medicine; Visit Provider Nurse Practitioner Obstetrics & Gynecology
DX: R53.83 Other fatigue (principal)
CPT/HCPCS: 36415; 80053; 80061; 82607; 82652; 83001; 83002; 83036; 84436; 84443; 84479; 85025

== ENCOUNTER → 2023-02-13 15:21 | Outpatient (POV) | payer OTHER, SELFPAY | PROVIDERS: PCP Internal Medicine Adolescent Medicine; Visit Provider Dermatology | DX: Z00.00 Encounter for general adult medical examination without abnormal findings (principal) ==

== ENCOUNTER 2023-03-21 09:06 | Outpatient (CLI) | payer OTHER, SELFPAY ==
[2023-03-21 09:54] LABS: Basophils # 0.1 K/mm3 (0-0.2); Basophils % 0.6 % (0.1-2.0); Eosinophils # 0.2 K/mm3 (0.0-0.4); Eosinophils % 2.3 % (0.1-12.0); Hemoglobin 14.5 g/dL (12.2-16.2); Lymphocytes # 1.9 K/mm3 (0.7-4.5); Lymphocytes % 24.9 % (10-50); Mean Corpuscular HGB Conc 33.8 g/dL (31.8-35.4); Mean Corpuscular Hemoglobin 29.2 pg (27.0-31.2); Mean Corpuscular Volume 86.3 fl (81-99); Mean Platelet Volume 8.7 fl (7.4-10.4); Monocytes # 0.4 K/mm3 (0.1-1.0); Monocytes % 4.8 % (1.7-9.3); Neutrophils # 5.2 K/mm3 (1.8-7.8); Neutrophils % 67.4 % (37.0-80.0); Platelet Count 352 K/mm3 (142-424); Red Blood Count 4.98 M/mm3 (4.20-5.40); Red Cell Distribution Width 14.8 % (11.5-17.5); White Blood Count 7.8 K/mm3 (4.8-10.8)
[2023-03-21 11:06] LABS: Alanine Aminotransferase 17 U/L (12-78); Albumin Level 4.4 g/dl (3.5-5.0); Albumin/Globulin Ratio 1.7 (1.1-1.8); Alkaline Phosphatase 64 U/L (38-126); Anion Gap 11.3 mEq/L (5-15); Aspartate Amino Transferase 23 U/L (14-36); Bilirubin,Total 0.6 mg/dl (0.2-1.3); Blood Urea Nitrogen 14 mg/dl (7-17); Calcium 8.9 mg/dl (8.4-10.2); Carbon Dioxide 26 mmol/L (22.0-30.0); Chloride 105 mmol/L (98-107); Chol/HDL Ratio 4.4 (1-3.5); Cholesterol 133 mg/dl (140-200); Estimated Glomerular Filt Rate 62 ml/min (>60); GFR (African American) 75 ML/MIN (>60); Globulin 2.6 g/dL (1.3-3.2); Glucose 92 mg/dl (74-100); HDL Cholesterol 30 mg/dl (40-60); Magnesium 1.9 mg/dl (1.6-2.3); Potassium 4.3 mmoL/L (3.5-5.1); Sodium 138 mmol/L (136-145); Triglycerides 98 mg/dl (30-150); VLDL Cholesterol 20 mg/dL (0-40)
[2023-03-21 11:17] LABS: Direct LDL Cholesterol 81.45 mg/dL (100-129)
[2023-03-21 12:43] LABS: Free Thyroxine Index 3.6 ug/dL (5.93-13.13); T4 (Thyroxine) 9.8 ug/dl (5.53-11.0); Triiodothryronine (T3) Uptake 37 % (23.5-40.5)
[2023-03-21 12:57] LABS: Thyroid Stimulating Hormone 1.98 uIU/mL (0.465-4.68)
== END 2023-03-21 23:59 ==
LOC: LAB 09:07
PROVIDERS: PCP Internal Medicine Adolescent Medicine; Visit Provider Internal Medicine Adolescent Medicine
DX: E03.9 Hypothyroidism, unspecified; I49.3 Ventricular premature depolarization
CPT/HCPCS: 36415; 80053; 80061; 83735; 84436; 84443; 84479; 85025

== ENCOUNTER 2024-01-04 08:38 | Outpatient (CLI) | payer OTHER, SELFPAY ==
--- NOTE | 2024-01-04 08:41 | US_ITS ---
PROCEDURE INFORMATION: Exam: US Abdomen, Limited; Right Upper Quadrant Exam date and time: 01/04/2024 8:43 AM Age: 38 years old Clinical indication: Abdominal pain; Epigastric; Additional info: Epigastric pain TECHNIQUE: Imaging protocol: Real time ultrasound of the abdomen with image documentation. Limited exam focused on the right upper quadrant. COMPARISON: [facility] US abdomen limited 06/13/2018 8:24 AM FINDINGS: Liver: Homogeneous echotexture. No mass or intrahepatic biliary duct dilatation. Appropriate color flow within the hepatic and portal veins. Gallbladder: Few shadowing gallstones within the gallbladder including a gallstone within the gallbladder neck. No significant gallbladder wall thickening or pericholecystic fluid. Biliary ducts: Bile ducts are normal in caliber. CBD 2-3 mm. Pancreas: Visualized pancreas is unremarkable. Right kidney: Right kidney measures 9.5 cm in length. No hydronephrosis. Intraperitoneal space: No free fluid. IMPRESSION: 1. Cholelithiasis. No sonographic evidence of acute cholecystitis. 2. No biliary duct dilatation.
== END 2024-01-04 23:59 | disposition home or self-care (01) ==
LOC: RAD 08:38
PROVIDERS: PCP Internal Medicine Adolescent Medicine; Visit Provider Nurse Practitioner Family
DX: R10.13 Epigastric pain (principal)
CPT/HCPCS: 76705

== ENCOUNTER 2024-01-22 08:38 | Outpatient (CLI) | payer OTHER, SELFPAY ==
--- NOTE | 2024-01-22 08:41 | FL_ITS ---
FINAL REPORT CLINICAL HISTORY: nausea 1480.83 dap 1.44 fluoro FINDINGS: AIR CONTRAST UPPER GI HISTORY: GERD, acute chest pain. TECHNIQUE: The patient ingested thick and thin barium contrast. Effervescent crystals were also administered. Spot and overhead films were performed. A total of 41 images were saved. FINDINGS: The esophagus demonstrates no morphologic abnormalities. No mucosal defects are seen in the esophagus. There is mild esophageal dysmotility. The stomach is of normal size, shape and position. There are small rounded filling defects identified in the stomach, raising the question of polyps. The duodenal bulb and sweep appear unremarkable. There is gastroesophageal reflux to the distal esophagus. 13 mm barium tablet passes easily through the esophagus and into the stomach. FLUROSCOPY TIME: 1 minute 44 seconds Radiation exposure in Total DAP: 1480.83 uGym2 IMPRESSION: Mild esophageal dysmotility. Gastroesophageal reflux. Multiple small filling defects in the stomach, raising the question of polyps. Recommend correlation with upper endoscopy. Reviewed, Interpreted and Dictated by Alex Langley MD Transcribed by Cindi Baez PA-C Authenticated and [facility]
[2024-01-22] MEDS: BARIUM SULFATE(LIQUID E-Z-PAQUE);355ML BOTTLE 355 ML PO (09:09)
[2024-01-22] MEDS: BARIUM SULFATE (E-Z-HD 340GM);135ML BOTTLE 135 ML PO (09:09)
== END 2024-01-22 23:59 | disposition home or self-care (01) ==
LOC: RAD 08:38
PROVIDERS: PCP Internal Medicine Adolescent Medicine; Visit Provider Surgery
DX: R11.0 Nausea (principal)
CPT/HCPCS: 74246

== ENCOUNTER 2024-04-02 08:55 | Outpatient (CLI) | payer OTHER, SELFPAY ==
[2024-04-02 08:59] LABS: Microscopic, Urine URINE MICROSCOPIC (MICROSCOPIC)
[2024-04-02 10:56] LABS: Appearance,Urine CLOUDY (Clear); Bilirubin,Urine Negative (Negative); Blood, Urine 3+ (Negative); Color,Urine YELLOW (Yellow); Glucose,Urine (UA) Negative (Negative); Ketones,Urine Negative (Negative); Leukocyte Esterase,Urine 2+ (Negative); Nitrate,Urine Negative (Negative); Protein,Urine TRACE (Negative); Urobilinogen,Urine 0.2 EU/dl (0.2)
[2024-04-02 11:13] LABS: Bacteria,Urine Trace /lpf; RBC,Urine 20-50 #/hpf (0-3); Transitional Epi Cells,Urine OCC #/lpf (0-3); WBC,Urine 20-50 #/hpf (0-3)
== END 2024-04-02 23:59 | disposition home or self-care (01) ==
LOC: LAB.DROPOF 08:55
PROVIDERS: PCP Internal Medicine Adolescent Medicine; Visit Provider Student in an Organized Health Care Education/Training Program
DX: R30.0 Dysuria (principal)
CPT/HCPCS: 81001; 87086

== ENCOUNTER 2024-04-11 09:38 | Outpatient (CLI) | payer OTHER, SELFPAY ==
[2024-04-11 10:46] LABS: Basophils % 0.6 % (0.1-2.0); Eosinophils # 0.2 K/mm3 (0.0-0.4); Eosinophils % 2.8 % (0.1-12.0); Hematocrit 39.1 % (37.0-47.0); Hemoglobin 13.1 g/dL (12.2-16.2); Lymphocytes # 2.7 K/mm3 (0.7-4.5); Lymphocytes % 41.6 % (10-50); Mean Corpuscular HGB Conc 33.5 g/dL (31.8-35.4); Mean Corpuscular Hemoglobin 27.4 pg (27.0-31.2); Mean Corpuscular Volume 81.8 fl (81-99); Mean Platelet Volume 10.6 fl (7.4-10.4); Monocytes # 0.4 K/mm3 (0.1-1.0); Monocytes % 6.6 % (1.7-9.3); Neutrophils # 3.1 K/mm3 (1.8-7.8); Neutrophils % 48.1 % (37.0-80.0); Platelet Count 350 K/mm3 (142-424); Red Blood Count 4.78 M/mm3 (4.20-5.40); Red Cell Distribution Width 13.2 % (11.5-17.5); White Blood Count 6.5 K/mm3 (4.8-10.8)
[2024-04-11 11:10] LABS: Alanine Aminotransferase 18 U/L (12-78); Albumin Level 4.4 g/dl (3.5-5.0); Albumin/Globulin Ratio 1.9 (1.1-1.8); Alkaline Phosphatase 66 U/L (38-126); Anion Gap 15.1 mEq/L (5-15); Aspartate Amino Transferase 26 U/L (14-36); Bilirubin,Total 0.5 mg/dl (0.2-1.3); Blood Urea Nitrogen 12 mg/dl (7-17); Calcium 9.2 mg/dl (8.4-10.2); Carbon Dioxide 23 mmol/L (22.0-30.0); Chloride 105 mmol/L (98-107); Chol/HDL Ratio 3.7 (1-3.5); Cholesterol 148 mg/dl (140-200); Estimated Glomerular Filt Rate 69 ml/min (>60); GFR (African American) 84 ML/MIN (>60); Globulin 2.3 g/dL (1.3-3.2); Glucose 101 mg/dl (74-100); HDL Cholesterol 40 mg/dl (40-60); Potassium 4.1 mmoL/L (3.5-5.1); Sodium 139 mmol/L (136-145); Total Protein,Serum 6.7 g/dl (6.3-8.2); Triglycerides 75 mg/dl (30-150); VLDL Cholesterol 15 mg/dL (0-40)
[2024-04-11 11:21] LABS: Direct LDL Cholesterol 72.54 mg/dL (100-129)
[2024-04-11 11:41] LABS: Thyroid Stimulating Hormone 2.16 uIU/mL (0.465-4.68)
[2024-04-11 12:00] LABS: Vitamin B12 807 pg/mL (239-931)
== END 2024-04-11 23:59 | disposition home or self-care (01) ==
LOC: LAB 09:39
PROVIDERS: PCP Internal Medicine Adolescent Medicine; Visit Provider Nurse Practitioner Family
DX: Z00.00 Encounter for general adult medical examination without abnormal findings (principal); R53.83 Other fatigue
CPT/HCPCS: 36415; 80053; 80061; 82306; 82607; 84443; 85025

== ENCOUNTER 2024-06-27 10:00 | Outpatient (CLI) | payer OTHER, SELFPAY ==
--- OUTSIDE RECORDS SUMMARY | 2024-06-27 10:02 | XMS_ITS ---
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
--- OUTSIDE RECORDS SUMMARY | 2024-06-27 10:02 | XMS_ITS | Clinical Summary ---
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 Role Phone DAHLIA SCHMIDT, PATRIA Primary Care Provider [phone] Jolie SCHMIDT, Clari Unavailable [phone] Reason for Referral Date Encounter Description Provider Reason for Referral 12/05/21 Post Op Clari Dave MD Re ferral To Physician Reason for Visit and Chief Complaint The Chief Complaint is: Low back into leg pain Problems Includes: Problems addressed during this encounter and other active Problems Current Visit Onset Date Resolved Date Provider Rimma singh Status Lower Back Pain 11/22/2021 Clari polanco MD Active Last Documented On 12:25PM ; [facility], [facility] Plan of Treatment She will follow-up with us in 4 weeks for her final postoperative checkup. We had a discussion today about signs and symptoms to look out for that would be concerning for repeat disc herniation. We also like her to continue on with bending lifting and twisting restrictions and limit any lifting to 20 pounds or pay agent. - Last Documented On 12/05/2021 9:43AM ; [facility], [facility] Instructions to patient Lose weight Last Documented On 2 9:03AM ; [facility], [facility] Assessments Includes: Assessments from this encounter Findings This is a 36-year-old female 2 weeks status post left L5-S1 microdiscectomy - Last Documented On 12/05/2021 9:43AM ; [facility], [facility] Instructions Includes: Instructions from this encounter Instructions to patient Lose weight Last Documented On 2 9:03AM ; [facility], [facility] Medical Equipment - Implanted Devices Includes: Current Devices No Medical Equipment Recorded Medications Includes: Medications discussed during this encounter and other current Medications Current Medications (continue as prescribed) Celecoxib 200 MG Oral Capsule 11/14/2021 Provider: PATRIA VILLAGOMEZ MD Diagnosis: Last Documented On 2 12:20PM By Maria Isabel Gordon ; [facility], [facility] Methocarbamol 500 MG Oral Tablet 11/14/2021 Provider : PATRIA VILLAGOMEZ MD Diagnosis: Last Documented On 2 12:20PM By Maria Isabel Gordon ; [facility], [facility] Levothyroxine Sodium 50 MCG Oral Tablet 11/09/2021 P tori: Reji Smalls Diagnosis: Last Documented On 2 12:20PM By Maria Isabel Gordon ; [facility], [facility] Pantoprazole Sodium 40 MG Or al Tablet Delayed Release 10/13/2021 Provider: PATRIA VILLAGOMEZ MD Diagnosis: Last Documented On 2 12:20PM By Maria Isabel Gordon ; [facility], [facility] Propranolol HCl 20 MG Oral Tablet 09/08/2021 Provide r: PATRIA VLILAGOMEZ MD Diagnosis: Last Documented On 2 12:20PM By Maria Isabel Gordon ; [facility], [facility] Phentermine HCl 37.5 MG Oral Tablet 08/18/2021 Provi karrie: Diagnosis: Last Documented On 2 12:20PM By Maria Isabel Gordon ; [facility], [facility] Past Medications on file Docusate Sodium 100 MG Oral Tablet 11/24/2021 - 12/24/2021 Provider: Clari Rosales MD Diagnosis: Take 1 tablet PO twice a day Last Documented On 2 9:44AM By Clari Dave ; [facility], [facility] HYDROcodone-Acetaminophen 5- 325 MG Oral Tablet 11/24/2021 - 12/01/2021 Provider: Clari Dave MD Diagnosis: Take 1 tablet PO Q4H PRN pain Last Documented On 2 9:44AM By Clari Dave ; [facility], [facility] Medications Administered Includes: Administered Medications from this encounter No Administered Medications Recorded Vital Signs Includes: Vital Signs from this encounter Vital Name 12/05/2021 09:07A Blood Pressure Sitting R 124/97 Pulse Rate-Sitting (bpm) 66 Height (in) 65 Weight (lb) 193 Body Mass Index (kg/m2) 32.1 Body Surface Area (m2) 1.9 Note: bb Last Documented: On 12/05/2021 9:07AM ; [facility], [facility] Results Includes: Results discussed during this encounter [...] used for this condition: She is here for a 2-week postop visit after a left L5-S1 microdiscectomy on November 24, 2021. Overall, she is feeling great. She reports no left leg pain. She states she is feeling 150% better. she denies any issues with her incision. She states that for the last few days there is been no drainage on her dry gauze dressings. Social History Description Last Updated Tobacco non-user 11/22/2021 Last Documented On 2 9:03AM ; [facility] Alcohol use 11/22/2021 Last Documented On 2 9:03AM ; [facility], [facility] Caffeine use 11/22/2021 Last Documented On 2 9:03AM ; [facility] No recent change in diet 11/22/2021 Last Documented On 2 9:03AM ; [facility], [facility] Not a current smoker. 11/22/2021 Last Documented On 2 9:03AM ; [facility], [facility] Not exercising regularly 11/22/2021 Last Documented On 2 9:03AM ; [facility], [facility] Not using drugs 11/22/2021 Last Documented On 2 9:03AM ; [facility], [facility] Smoking Status Unknown Procedures and Surgical History Includes: Procedures from this encounter Procedures Code Diagnosis Performing Provider Service L ocation Service Date use of tobacco assessment performed 1000F Last Documented On 2 9:03AM ; [facility], [facility] no influenza immunization contraindicate d Last Documented On 2 9:03AM ; [facility] follow-up visit in one month Last Documented On 2 9:03AM ; [facility], [facility] referral to physician Last Documented On 2 9:03AM ; [facility], [facility] an X-ray was performed 11/22/2021 LSbrittany @ [facility] [id number] Last Documented On 2 9:03AM ; [facility], [facility] an MRI was performed 11/14/2021 LSbrittany @ [facility] [id number] Last Documented On 2 9:03AM ; [facility], [facility] Surgical History Last Updated History of back surgery 11/24/2021 Left L5-S1 Microdiscectomy @ [facility] 12/05/2021 Last Documented On 2 9:43AM ; [facility], [facility] Medical History Includes: Medical History addressed during this encounter Description Last Updated No recent immunization for flu 2 Last Documented On 2 9:03AM ; [facility] History of diverticulitis of colon 11/22 Last Documented On 2 9:03AM ; [facility] History of Irregular Heartbeat 2 Last Documented On 2 9:03AM ; [facility], [facility] History of Thyroid Disease 11/22/2021 Last Documented On 2 9:03AM ; [facility], [facility] No recent immunization for pneumococcal pneumonia 11/22/2021 Last Documented On 2 9:03AM ; [facility], [facility] Past Surgical History: CSection ~Breast augmentation 11/22/2021 Last Documented On 2 9:03AM ; [facility], [facility] Family History Includes: Family History addressed during this encounter Description Last Updated Diabetes mellitus 11/22/2021 Last Documented On 2 9:03AM ; [facility] Family history of heart disease 11/23/19 22 Last Documented On 2 9:03AM ; [facility] Family history of systemic hypertension 11/22/2021 Last Documented On 2 9:03AM ; [facility] Review of Systems Includes: Review of [...] No complaint of seasonal allergic reaction. reviewed 12/05/2021 Mental Status Includes: Mental Status from this encounter Description No anxiety Functional Status Includes: Functional Status from this encounter No Functional Status Recorded Physical Exam Includes: Physical Exam from this encounter Allergies Includes: Active Allergies No Known Allergies Encounters Encounter Provider Location Date Check-In Time Check- Out Time Diagnosis Post Op Clari ramsay MD [facility] 2 9:00AM 9:32AM Insurance Includes: Active Insurance Policies Plan Name Member ID Group # Subscriber Relationship Effect anny Dates 1 - [facility] [id number] Jacque Hollingsworth Self 03/05 - Unknown Clinical Notes Includes: Clinical Notes from this encounter No Clinical Notes Recorded
--- OUTSIDE RECORDS SUMMARY | 2024-06-27 10:02 | XMS_ITS ---
Author Organization [facility] , [facility] Address [address] [place] [address] Phone Care Team Providers Care Sign Painter Name Role Phone DAHLIA SCHMIDT, PATRIA Primary Care Provider [phone] Jolie SCHMIDT, Clari Unavailable [phone] Reason for Referral Date Encounter Description Provider Reason for Referral 01/09/22 Post Op Clari Dave MD Re ferral To Physician 12/05/21 Post Op Clari Dave MD Re ferral To Physician 11/22/21 Physician Specified Clari ramsay MD Referral To Physician Problems Includes: Active, inactive, and resolved Problems All Visits Onset Date Resolved Date Provider Condition S tatus Lower Back Pain 11/22/2021 Clari polanco MD Active Last Documented On 2 12:25PM ; [facility], [facility] Plan of Treatment Instructions to patient Lose weight Last Documented On 2 8:49AM ; [facility], [facility] Lose weight Last Documented On 2 9:03AM ; [facility], [facility] Lose weight Last Documented On 2 12:48PM ; [facility], [facility] Assessments Includes: Assessments for all patient encounters No Assessments Recorded Instructions Includes: Instructions for all patient encounters Instructions to patient Lose weight Last Documented On 2 8:49AM ; [facility], [facility] Lose weight Last Documented On 2 9:03AM ; [facility], [facility] Lose weight Last Documented On 2 12:48PM ; [facility], [facility] Medical Equipment - Implanted Devices Includes: Current and historical Devices No Medical Equipment Recorded Medications Includes: Current and historical Medications Current Medications (continue as prescribed) Celecoxib 200 MG Oral Capsule 11/14/2021 Provider: PATRIA VILLAGOMEZ MD Diagnosis: Last Documented On 2 12:20PM By Maria Isabel Gordon ; [facility], [facility] Methocarbamol 500 MG Oral Tablet 11/14/2021 Provider : PATRIA VILLAGOMEZ MD Diagnosis: Last Documented On 2 12:20PM By Maria Isabel Gordon ; [facility], [facility] Levothyroxine Sodium 50 MCG Oral Tablet 11/09/2021 P tori: Reji Smalls Diagnosis: Last Documented On 2 12:20PM By Maria Isabel Gordon ; [facility], [facility] Pantoprazole Sodium 40 MG Or al Tablet Delayed Release 10/13/2021 Provider: PATRIA VILLAGOMEZ MD Diagnosis: Last Documented On 2 12:20PM By Maria Isabel Gordon ; [facility], [facility] Propranolol HCl 20 MG Oral Tablet 09/08/2021 Provide r: PATRIA VILLAGOMEZ MD Diagnosis: Last Documented On 2 12:20PM By Maria Isabel Gordon ; [facility], [facility] Phentermine HCl 37.5 MG Oral Tablet 08/18/2021 Provi karrie: Diagnosis: Last Documented On 2 12:20PM By Maria Isabel Gordon ; [facility], [facility] Past Medications on file Docusate Sodium 100 MG Oral Tablet 11/24/2021 - 12/24/2021 Provider: Clari Rosales MD Diagnosis: Take 1 tablet PO twice a day Last Documented On 2 9:44AM By Clari Dave ; [facility], [facility] HYDROcodone-Acetaminophen 5- 325 MG Oral Tablet 11/24/2021 - 12/01/2021 Provider: Clari Dave MD Diagnosis: Take 1 tablet PO Q4H PRN pain Last Documented On 2 9:44AM By Clari Dave ; [facility], [facility] Medications Administered Includes: Administered Medications in patient's chart No Administered Medications Recorded Results Includes: Results from 06/28/2023 through 06/27/2024 No Results Recorded For Specified Dates History of Present Illness History of Present Illness not supported for this document type No History of Present Illness Recorded Social History Description Last Updated Tobacco non-user 11/22/2021 Last Documented On 2 1:46PM ; [facility], [facility] Alcohol use 11/22/2021 Last Documented On 2 1:46PM ; [facility], [facility] Caffeine use 11/22/2021 Last Documented On 2 1:46PM ; [facility] No recent change in diet 11/22/2021 Last Documented On 2 1:46PM ; [facility] Not a current smoker. 11/22/2021 Last Documented On 2 1:46PM ; [facility] Not exercising regularly 11/22/2021 Last Documented On 2 1:46PM ; [facility] Not using drugs 11/22/2021 Last Documented On 2 1:46PM ; [facility] Smoking Status Unknown Procedures and Surgical History Surgical History Last Updated History of back surgery 11/24/2021 Left L5-S1 Microdiscectomy @ [facility] 12/05/2021 Last Documented On 2 9:43AM ; [facility] Medical History Includes: Medical History in patient's chart Description Last Updated Recent immunization for flu 01/02/2022 1 03/11/2021 Last Documented On 2 9:38AM ; [facility], [facility] History of diverticulitis of colon 11/22 Last Documented On 2 1:46PM ; [facility], [facility] History of Irregular Heartbeat 2 Last Documented On 2 1:46PM ; [facility], [facility] History of Thyroid Disease 11/22/2021 Last Documented On 2 1:46PM ; [facility], [facility] No recent immunization for pneumococcal pneumonia 11/22/2021 Last Documented On 2 1:46PM ; [facility], [facility] Past Surgical History: CSection ~Breast augmentation 11/22/2021 Last Documented On 2 1:46PM ; [facility] Family History Includes: Family History in patient's chart Description Last Updated Diabetes mellitus 11/22/2021 Last Documented On 2 1:46PM ; [facility] Family history of heart disease 11/23/19 Last Documented On 2 1:46PM ; [facility] Family history of systemic hypertension 11/22/2021 Last Documented On 2 1:46PM ; [facility] Review of Systems Review of Systems not supported for this document type No Review of Systems Recorded Mental Status Description No anxiety Functional Status No Functional Status Recorded Physical Exam Physical Exam not supported for this document type No Physical Exam Recorded Immunizations Includes: Immunizations in patient's chart Vaccine Dose # Date Site Reaction(s) Status Source Influenza 1 11/22/2021 Complete (Refused - Patient objection) [facility] Last Documented On 2 12:27PM ; [facility] PCV (Pneumovax 23) 1 11/22/2021 Suspended (Contraindicated) [facility] Last Documented On 2 12:27PM ; [facility] Allergies Includes: Active, inactive, and resolved Allergies No Known Allergies Insurance Includes: Active Insurance Policies Plan Name Member ID Group # Subscriber Relationship Effect anny Dates 1 - [facility] [id number] Jacque Hollingsworth Self 03/05 - Unknown Clinical Notes Includes: Signed Clinical Notes starting from 02/16/2022 No Clinical Notes Recorded
[2024-06-27 10:07] VITALS: BMI 29.6
--- NOTE | 2024-06-27 10:20 | ECG_ITS ---
APPROVED REPORT Exam: Resting ECG HR:65 bpm ECG Measurements Heart Rate 65 AXES NV 156 P 24 QRSd 103 QRS -1 QT 362 T 30 QTc 374 Conclusion SINUS RHYTHM LOW QRS VOLTAGE IN PRECORDIAL LEADS [QRS DEFLECTION < 1.0 mV IN CHEST LEADS] BORDERLINE ECG UNCONFIRMED REPORT Electronically signed by : Alexis Guido MD 06/30/2024 08:29:44
[2024-06-27 11:42] LABS: Chloride 105 mmol/L (98-107)
[2024-06-27 11:43] LABS: Basophils # 0.1 K/mm3 (0-0.2); Basophils % 0.6 % (0.1-2.0); Eosinophils # 0.3 Kmm3 (0.0-0.4); Eosinophils % 2.8 % (0.1-12.0); Hematocrit 41.8 % (37.0-47.0); Lymphocytes # 2.5 K/mm3 (0.7-4.5); Lymphocytes % 28.7 % (10-50); Mean Corpuscular HGB Conc 33.5 g/dL (31.8-35.4); Mean Corpuscular Hemoglobin 28.1 pg (27.0-31.2); Mean Corpuscular Volume 83.8 fl (81-99); Monocytes # 0.7 K/mm3 (0.1-1.0); Monocytes % 7.7 % (1.7-9.3); Neutrophils # 5.3 K/mm3 (1.8-7.8); Nucleated Red Blood Cells # 0 10^3/uL; Nucleated Red Blood Cells % 0 %; Platelet Count 320 K/mm3 (142-424); Red Blood Count 4.99 M/mm3 (4.20-5.40); Red Cell Distribution Width 14.5 % (11.5-17.5); Red Cell Distribution Width-SD 44.1 fL; Sodium 138 mmol/L (136-145); White Blood Count 8.8 K/mm3 (4.8-10.8)
[2024-06-27 11:45] LABS: Blood Urea Nitrogen 11 mg/dl (7-17); Creatinine Clearance Estimated 95 mL/min (50-200); Estimated Glomerular Filt Rate 61 ml/min (>60); GFR (African American) 74 ML/MIN (>60)
[2024-06-27 11:46] LABS: Carbon Dioxide 25 mmol/L (22.0-30.0); Glucose 96 mg/dl (74-100)
[2024-06-27 11:52] LABS: HCG Qualitative, Serum Negative (Negative)
== END 2024-06-27 23:59 | disposition home or self-care (01) ==
LOC: PREOP 10:00
PROVIDERS: PCP Internal Medicine Adolescent Medicine; Visit Provider Obstetrics & Gynecology
DX: Z01.810 Encounter for preprocedural cardiovascular examination (principal); R94.31 Abnormal electrocardiogram [ECG] [EKG]
CPT/HCPCS: 80048; 84703; 85025; 93005

== ENCOUNTER 2024-07-04 06:05 | Day surgery (SDC) | payer OTHER, SELFPAY ==
[2024-06-27 10:50] VITALS: BMI 29.6
[2024-07-04] VITALS (11 sets, daily range): BP systolic 126–159; BP diastolic 72–93; PULSE 57–95; RESP 16–18; TEMP 36.1–38; O2SAT 98–100
[2024-07-04] MEDS: ACETAMINOPHEN 500MG TAB 1000 MG PO (06:37)
[2024-07-04] MEDS: LACTATED RINGERS 1000ML 1,000 ML 25 ML IV (06:38)
[2024-07-04] MEDS: BUPIVACAINE 0.5% 30ML VIAL 150 MG (07:50)
--- NOTE | 2024-07-04 08:28 | P.PNANES_ITS ---
[facility] Disclaimer: The information contained in this section may have been updated after the patient was seen, as this information can be updated by other users. 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 Have you lived/traveled outside [place] in past 30 days?: No Contact w/someone who lives/traveled outside US past 30 days?: No Exposure to someone with infectious disease in past 14 days?: No Do you have a fever (greater than 100.4 F or 38 C)?: No Have you tested positive for COVID-19?: No Exposed to someone with COVID-19 in past 14 days?: No Do you have a sore throat?: No Do you have a cough?: No Do you have any weakness?: No Are you experiencing any nausea/vomitting?: No Do you have any diarrhea?: No Are you experiencing any unusual bleeding?: No Do you have any muscle aches/pain?: No Do you have any abdominal pain?: No Are you experiencing loss of taste or smell?: No [facility] Anesthesia Checklist Patient Identification Patient Identification: Arm Band Structural Data Admitted From: Home Planned Operative Procedure/s: Laparoscopic Bilateral Salpingectomy Consent for Planned Operative Procedure(s) Verified: Yes Verified Documents: Surgical Consent and History and Physical NPO Status Verified Time NPO: 00:00 Additional verifications Anesthesia Reactions: No Hx Blood Transfusions: No Blood Transfusion Reaction: No Airway Assessment Mallampati Score:: Class II C-Spine Mobility Assessed: Yes TMJ Mobility Assessed: Yes Dentition: Good Dentition Neurological Assessment Level of Consciousness: Awake, Alert and Appropriate Anesthesia Plan Anesthesia Risk discussed: Yes Anesthesia Plan: Verified ASA Class: II Anesthesia Type: General
--- NOTE | 2024-07-04 08:29 | EXP.ANES.I ---
[facility] Anesthesia Record Part I Anesthesia Record I Intake, IV Amount: 900 Hydration: Adequate Estimated blood loss (mL): 5 Urine output (mL): 0 Blood Products used (#): none Blood Pressure: 129/87 SaO2: 99 Pulse Rate: 85 Airway Patency: Patent Respiratory Rate: 16 Temperature: 97.9 F Patient is:: Drowsy and Stable Stable to PACU at:: 08:20
--- NOTE | 2024-07-04 08:56 | P.OP_ITS ---
Date of procedure: 07/04/24 Pre-op Diagnosis:: 1. Complete family status, desires permanent sterilization Post-op Diagnosis:: 1. Complete family status, desires permanent sterilization 2. Endometriosis of pelvic peritoneum 3. Left simple ovarian cyst Procedure performed:: Laparoscopy, bilateral salpingectomy Surgeon:: Yenny Kerr DO Pro Shop Attendant(s):: N/a BEATING MACHINE OPERATOR:: Talha Montelongo Anesthesia: GETA Estimated blood loss (mL): 5 Clinical Note:: Mrs Jacque Hollingsworth is a 38 yo P1011 who presents to [facility] for scheduled procedure. She is complete with childbearing and desires permanent sterilization. She has history of bicornuate uterus and x 1. Operative findings:: 1. On bimanual exam uterus normal size and shape, midposition. No adnexal masses palpted 2. On laparoscopic exam, grossly normal appearing liver, stomach and bowel. Gallbladder surgically absent. Uterus and bilateral fallopian tubes grossly normal. Left ovary with large simple appearing cyst. Right ovary grossly normal. 3. One powder burn lesion in posterior cul-de-sac with many small clear vesicular endometriotic lesions in posterior cul-de-sac consistent with endometriosis Operative note:: Risks, benefits and alternatives were discussed with the patient. Risks include but are not limited to bleeding, infection, damage to adjacent structures and VTE. Patient voiced understanding and agreed to proceed with surgery. She was wheeled back to the operating room and placed under general anesthesia without difficulty. She was placed in the dorsal lithotomy position and prepped and draped in normal sterile fashion. A straight catheter was used to drain the bladder. A bimanual exam was performed. A weighted Auvard was placed in the vaginal vault. A single tooth tenaculum was placed on the anterior lip of the cervix. [employer] manipulator was inserted into the cervical canal and attached to the tenaculum. Weighted Auvard was removed from the vagina. Attention was then drawn to the abdomen. A 1.5 cm infraumbilical incision was made. Veress needle was tested and inserted intraabdominally without difficulty. Opening pressure of 5 mm Hg. Abdomen was then insulflated to 15 mm Hg. Trocar was inserted through infraumbilical incision and laparoscope was inserted. Abdomen was viewed in its entirety. See findings above. Pictures were taken. L eft lower quadrant was transilluminated. 5 mm incision was made and 5 mm disposable blunt trocar was inserted into the abdomen under direct laparoscopic visualization. Trocar was removed and sleeve was left in place. Right lower quadrant was transilluminated. A 5 mm incision was made and a 5 mm disposable trocar was inserted into the abdomen under direct laparoscopic visualization. Obturator was removed and sleeve was left in place. Fimbriated end of right fallopian tube was grasped. Ligasure was used to transect the right mesosalpinx and fallopian tube at uterine cornua, leaving right ovary in situ. Same procedure was carried out on the contralateral side. Bilateral fallopian tubes will be sent to pathology for review. Hemostasis was noted. Left lower quadrant trocar was removed under direct laparoscopic visualization. Right lower quadrant trocar was removed under direct laparoscopic visualization. Pneumoperitoneum was released into the atmosphere. Infraumbilical trocar was removed under direct laparoscopic visualization to ensure no herniation of bowel or omentum. Skin incisions were closed with 3-0 Vicryl. Dermabond was applied over closed skin incisions. All instruments were removed from the vagina. Tenaculum site was noted to be hemostatic. Patient was cleaned and placed into the dorsal supine position. She awoke from anesthesia without difficulty. She was transported to the recovery room in stable condition. She was given instructions for discharge and to follow-up in the office in 2 weeks. Condition: stable Disposition: same day Specimens:: 1. Bilateral fallopian tubes Complications:: None
--- NOTE | 2024-07-04 09:50 | SUR.PHASEII ---
Discharge instructions gone over with and pt. All questions answered and both verbalized understanding. Post-op pain medications delivered by [facility], no questions from either alliance party regarding medications. PIV removed with tip intact. Pt assisted in dressing by . Pt transported to personal vehicle by this RN via wheelchair.
--- NOTE | 2024-07-04 13:19 | EXP.ANES.II ---
[facility] Anesthesia Record Part II Anesthesia Record Part II Discharge Time: 08:50 Destination: Surgical Day Care (OP Surgery) PACU nurse assessment reviewed?: Yes Patient Condition:: Good Anesthesia Complications:: None Swallowing reflex intact?: Yes Airway Patency: Patent Cyanosis?: No Blood Pressure: 139/87 SaO2: 98 Respiratory Rate: 16 Pulse Rate: 72 Temperature: 97.9 F Mental Status: Alert & Oriented Pain level:: 0 Nausea and/or vomitting:: None Intake, IV Amount: 0 Hydration: Adequate
== END 2024-07-04 09:30 | disposition home or self-care (01) ==
PROVIDERS: PCP Internal Medicine Adolescent Medicine; Visit Provider Obstetrics & Gynecology
PROC: (CPT 58661; principal; 2024-07-04 07:30)
DX: Z30.2 Encounter for sterilization (principal); N80.329 Endometriosis of the posterior cul-de-sac, unspecified depth; N83.292 Other ovarian cyst, left side
CPT/HCPCS: 58661; J3490; C9144; J1100; J1885; J2250; J2405; J3010; J7120

== ENCOUNTER 2025-02-10 20:46 | Emergency (ER) | payer OTHER, SELFPAY ==
--- NOTE | 2025-02-10 20:44 | ECG_ITS ---
APPROVED REPORT Exam: Resting ECG HR:79 bpm ECG Measurements Heart Rate 79 AXES IL 186 P 61 QRSd 96 QRS 49 QT 350 T 45 QTc 385 Conclusion SINUS RHYTHM MINIMAL ST DEPRESSION [0.025+ mV ST DEPRESSION] No STEMI Electronically signed by : ASHER LARIOS, 02/13/2025 06:51:39
[2025-02-10 20:46] VITALS: BP 148/92; PULSE 89; RESP 20; TEMP 36.9; O2SAT 98; BMI 26.6
--- NOTE | 2025-02-10 20:48 | HMH.EDGENADL ---
Discharge Plan Disposition Patient Disposition: Home, Self-Care Condition: Good Prescriptions Prescriptions: New sucralfate 100 mg/mL suspension 1 g PO Q4H Qty: 200 0RF No Action cetirizine 10 mg tablet 10 mg PO DAILY Qelbree 200 mg capsule,extended release 24hr 200 mg PO DAILY levothyroxine [Synthroid] 50 mcg tablet 0.5 mcg PO DAILY propranolol 20 mg tablet 10 mg PO DAILY famotidine 20 mg tablet 20 mg PO BID Patient Comments: TAKE ONE TABLET BY MOUTH TWICE DAILY pantoprazole 40 MG tablet,delayed release (DR/EC) 40 mg PO DAILY Referrals Follow up/Referrals: Ben Mayfield MD [Staff Physician, General Surgery] - See instructions Alexis Guido MD [Primary Care Provider, Internal Medicine] - See instructions Activity Restrictions/Add. Instructions Additional Instructions/Restrictions: I have sent you with a referral to Dr. Mayfield. Call him to schedule an appointment as you likely need your gallbladder removed. Return to the emergency department for any acute or worsening symptoms. Clinical Impressions Clinical Impression: Acute epigastric pain, Chest pain, Symptomatic cholelithiasis Print Language Print Language: Singaporean Discharge ED Provider: Gaby Beth General Adult HPI General Chief complaint: Chest Pain Stated complaint: chest pain Time Seen by Provider: 02/10/25 20:48 History of Present Illness HPI narrative: Patient is a 39-year-old female who presented to the emergency department with chest pain that started at 7 PM. Patient states that she was trying to lay down for bed when she started having chest pain that was in the center of her chest and radiated up. Patient states that felt like a 10 out of 10. Patient states that she has never had similar pain before. Patient states that her pain was not worse with anything in particular. Patient states that she did eat about 30 minutes prior. Patient denies any lower abdominal pain. Patient denies any vomiting or diarrhea. Patient reports history of reflux. Patient states that she was told that she has gallstones and her gallbladder was supposed to be removed. Has a cardiac history in her family but no individual cardiac history. Related Data Home Medications ?Medication ?Instructions ?Recorded ?Confirmed levothyroxine 50 mcg tablet 0.5 mcg PO DAILY thyroid 04/19/17 07/18/24 (Synthroid) pantoprazole 40 mg tablet,delayed 40 mg PO DAILY GERD 01/23/20 07/18/24 release propranolol 20 mg tablet 10 mg PO DAILY 07/17/22 07/18/24 famotidine 20 mg tablet 20 mg PO BID 01/29/24 07/18/24 cetirizine 10 mg tablet 10 mg PO DAILY 06/11/24 07/18/24 viloxazine 200 mg capsule,extended 200 mg PO DAILY 06/11/24 07/18/24 release 24 hr (Qelbree) Previous Rx's ?Medication ?Instructions ?Recorded sucralfate 100 mg/mL oral 1 g (10 mL) PO Q4H #200 mL 02/11/25 suspension Allergies Allergy/AdvReac Type Severity Reaction Status Date / Time No Known Allergies Allergy Verified 07/18/24 10:32 [facility] Disclaimer: The information contained in this section may have been updated after the patient was seen, as this information can be updated by other users. Medical History (Updated 02/11/25 @ 00:26 by Gaby Beth DO) Endometriosis determined by laparoscopy Bicornuate uterus Request for sterilization Mild acid reflux Hypothyroidism Surgical History (Updated 07/18/24 @ 11:32 by Yenny Kerr DO) H/O bilateral salpingectomy Previous back surgery S/P dilation and curettage H/O breast augmentation History of delivery Family History Other Family history of cancer Family history of diabetes mellitus Family history of hypertension Social History Smoking Status: Never smoker alcohol intake: never substance use type: denies use current occupational status: employed Travel in the last 8 weeks?: None household members: spouse housing: house number of children: 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 Have you lived/traveled outside US in past 30 days?: No Contact w/someone who lives/traveled outside US past 30 days?: No Exposure to someone with infectious disease in past 14 days?: No Do you have a fever (greater than 100.4 F or 38 C)?: No Have you tested positive for COVID-19?: No Exposed to someone with COVID-19 in past 14 days?: No Do you have a sore throat?: No Do you have a cough?: No Do you have any weakness?: No Do you have any diarrhea?: No Are you experiencing any unusual bleeding?: No Do you have any muscle aches/pain?: No Do you have any abdominal pain?: No Are you experiencing loss of taste or smell?: No Other Medical History Have you received the Flu Vaccine for this season: Yes Have you received the Pneumonia Vaccine: No ROS Obtained: Yes All systems reviewed & no additional complaints except as documented and Yes Systems reviewed as appropriate & no additional complaints except as documented Physical Exam General General appearance: alert and in no apparent distress Head Head exam: atraumatic, normocephalic and normal inspection Eye Eye exam: Present normal appearance, PERRL and EOMI; Absent scleral icterus ENT ENT exam: Present normal exam and normal external ear exam Neck Neck exam: Present normal inspection and full ROM Chest Chest inspection: Present normal inspection and symmetric chest wall rise Respiratory Respiratory exam: Present normal lung sounds bilaterally; Absent respiratory distress or wheezes Cardiovascular Cardiovascular exam: Present regular rate, normal rhythm and normal heart sounds Abdominal Exam Abdominal exam: Present soft, distention and tenderness (epigastric and right upper abdominal tenderness); Absent guarding or rebound Extremities Exam Extremities exam: Present normal inspection and full ROM Back Exam Back exam: Present normal inspection and full ROM Neurological Exam Neurological exam: Present alert and oriented X3 Psychiatric Psychiatric exam: Present normal affect and normal mood Skin Skin exam: Present warm and dry Medical Decision Making Medical Records Medical records reviewed: Yes I reviewed the patient's medical records. Screening: Per USPSTF and CDC recommendations, given the prevalence of disease in our region, it is our hospital?s policy to screen for HIV and viral Hepatitis for all patients aged 18 and over and those with ongoing risk factors. Jose Angel Inquiry Pt receiving controlled substance: No Vital Signs: 02/10/25 20:46 02/10/25 21:07 02/10/25 22:28 Temperature 98.4 F Temperature Source Oral Pulse Rate 76 72 Pulse Rate [Right Radial] 89 Respiratory Rate 20 16 Blood Pressure 97/63 L Blood Pressure [Right Arm] 148/92 H Blood Pressure Mean [Right Arm] 110 Blood Pressure Source [Right Arm] Automatic Cuff Blood Pressure Position [Right Arm] Sitting 02 Sat by Pulse Oximetry 98 99 Oxygen Delivery Method Room Air Room Air 02/10/25 23:52 02/11/25 00:24 Temperature 98.9 F Temperature Source Oral Pulse Rate 82 74 Pulse Rate [Right Radial] Respiratory Rate 18 16 Blood Pressure 130/90 107/67 L Blood Pressure [Right Arm] Blood Pressure Mean [Right Arm] Blood Pressure Source [Right Arm] Blood Pressure Position [Right Arm] 02 Sat by Pulse Oximetry 99 Oxygen Delivery Method Room Air Room Air Lab Data Lab results reviewed: Yes I reviewed the patient's lab results. Lab Results 02/10/25 20:49: WBC 12.5 H, RBC 4.45, Hgb 13.2, Hct 37.2, MCV 83.6, MCH 29.7, MCHC 35.5 H, RDW 13.4, Plt Count 367, MPV 10.3, Neut % (Auto) 57.9, Lymph % (Auto) 33.8, [place] % (Auto) 6.1, Eos % (Auto) 1.6, Baso % (Auto) 0.4, Neut # (Auto) 7.3, Lymph # (Auto) 4.2, [place] # (Auto) 0.8, Eos # (Auto) 0.2, Baso # (Auto) 0.1, D-Dimer 0.45, Sodium 138, Potassium 3.5, Chloride 101, Carbon Dioxide 22, Anion Gap 18.5 H, BUN 19 H, Creatinine 1.10 H, Estimated Creat Clear 77, Estimated GFR 55 L, Est GFR ( Amer) 66, Glucose 122 H, Calcium 9.6, Total Bilirubin 0.5, AST 63 H, ALT 27, Alkaline Phosphatase 81, Troponin I < 0.01, Total Protein 7.9, Albumin 4.7, Globulin 3.2, Albumin/Globulin Ratio 1.5, Lipase 300, HCG, Quant < 2 02/10/25 23:41: Troponin I < 0.01 02/10/25 20:49 02/10/25 20:49 Orders (Tests/Meds): ED MEDICATIONS Discontinued Medications Generic Name Dose Route Start Last Admin Trade Name Freq PRN Reason Stop Dose Admin Aspirin 324 mg 02/10/25 20:55 02/10/25 21:05 Aspirin 81mg Chewable Tablet PO 02/10/25 20:56 324 mg ONCE ONE Administration Belladonna Alkaloids 60 ml 02/10/25 20:58 02/10/25 21:05 Belladonna Alkaloids 60 Ml Ml PO 02/10/25 20:59 60 ml ONCE ONE Administration Ketorolac Tromethamine 30 mg 02/10/25 22:23 02/10/25 22:26 Ketorolac 30mg/Ml Vial IV 02/10/25 22:24 30 mg ONCE ONE Administration Nitroglycerin 0.4 mg 02/10/25 20:55 Nitroglycerin 0.4mg Sl Tablet SL 02/11/25 20:55 Q5MINP PRN Chest Pain ORDERS Category Date Time Status CXR 2 view (NOT portable) [XR chest 2V] Stat Exams 02/10/25 21:34 Completed POCUS Point of Care (ER Only) Stat Exams 02/10/25 21:34 Completed Complete Blood Count Auto Diff Stat Lab 02/10/25 20:49 Completed Comprehensive Metabolic Panel Stat Lab 02/10/25 20:49 Completed D-Dimer Stat Lab 02/10/25 20:49 Completed HCG,Quantitative Stat Lab 02/10/25 20:49 Completed Lipase Stat Lab 02/10/25 20:49 Completed Troponin I Q3H Lab 02/10/25 23:41 Completed Troponin I Stat Lab 02/10/25 20:49 Completed Medical Decision Narrative: Patient is a 39-year-old female with no significant past medical history who presented to the emergency department with chest pain. On arrival, patient was hemodynamically stable with unremarkable vital signs. Differential includes but not limited to: ACS/MN, gallbladder disease, pancreatitis, pulmonary disease, reflux, amongst others Patient's labs were reviewed and interpreted by myself: CBC showed mild leukocytosis, hemoglobin was stable. D-dimer was normal at 0.45. CMP was unremarkable. Lipase was mildly elevated at 300 but normal. Initial troponin less than 0.01, second troponin less than 0.01. test negative. Chest x-ray was obtained which was reviewed and interpreted by myself and showed no acute focal consolidation, pneumothorax, pleural effusion or other acute cardiopulmonary process. EKG was reviewed and interpreted by myself and showed normal sinus rhythm without acute ST or T wave changes concerning for ischemia. Patient was given a GI cocktail in the emergency department as well as Toradol for his symptoms. Bedside [id number] ultrasound was performed which showed gallstones without any gallbladder wall thickening or Brown cholecystic fluid to suggest Cholecystitis. Patient symptoms did improve in the emergency department after symptomatic management. Suspect that patient symptoms may be reflux or gallbladder related. I offered admission for symptomatic cholelithiasis but patient wished to discharge at this time and have outpatient general surgery follow-up. Patient already takes Protonix at home. Patient was sent with Sucnicki roach for additional symptom control. Patient was otherwise discharged home in stable condition, return precautions were discussed Critical Care Critical Care Time Critical Care Time: No
[2025-02-10 21:00] LABS: Hematocrit 37.2 % (37.0-47.0); Hemoglobin 13.2 g/dL (12.2-16.2); Immature Granulocytes % 0.2 %; Mean Corpuscular HGB Conc 35.5 g/dL (31.8-35.4); Mean Corpuscular Hemoglobin 29.7 pg (27.0-31.2); Mean Corpuscular Volume 83.6 fl (81-99); Nucleated Red Blood Cells % 0 %; Platelet Count 367 K/mm3 (142-424); Red Blood Count 4.45 M/mm3 (4.20-5.40); Red Cell Distribution Width-SD 41.0 fL; White Blood Count 12.5 K/mm3 (4.8-10.8)
[2025-02-10] MEDS: BELLADONNA ALKALOIDS 60 ML ML PO (21:05)
[2025-02-10] MEDS: ASPIRIN 81MG CHEWABLE TABLET 324 MG PO (21:05)
[2025-02-10 21:06] LABS: Lipase 300 U/L (23-300)
[2025-02-10 21:07] VITALS: PULSE 76
[2025-02-10 21:08] LABS: Alanine Aminotransferase 27 U/L (12-78); Albumin Level 4.7 g/dl (3.5-5.0); Albumin/Globulin Ratio 1.5 (1.1-1.8); Alkaline Phosphatase 81 U/L (38-126); Anion Gap 18.5 mEq/L (5-15); Aspartate Amino Transferase 63 U/L (14-36); Bilirubin,Total 0.5 mg/dl (0.2-1.3); Blood Urea Nitrogen 19 mg/dl (7-17); Calcium 9.6 mg/dl (8.4-10.2); Carbon Dioxide 22 mmol/L (22.0-30.0); Chloride 101 mmol/L (98-107); Creatinine Clearance Estimated 77 mL/min (50-200); Creatinine,Serum 1.10 mg/dl (0.52-1.04); Estimated Glomerular Filt Rate 55 ml/min (>60); GFR (African American) 66 ML/MIN (>60); Globulin 3.2 g/dL (1.3-3.2); Glucose 122 mg/dl (74-100); Potassium 3.5 mmoL/L (3.5-5.1); Sodium 138 mmol/L (136-145); Total Protein,Serum 7.9 g/dl (6.3-8.2)
[2025-02-10 21:24] LABS: Troponin I < 0.01 ng/ml (0.00-0.034)
--- NOTE | 2025-02-10 21:34 | XR_ITS ---
PROCEDURE INFORMATION: Exam: XR Chest Exam date and time: 02/10/2025 9:35 PM Age: 39 years old Clinical indication: Pain; Chest pressure; Additional info: Chest pain TECHNIQUE: Imaging protocol: Radiologic exam of the chest. Views: 2 views. COMPARISON: CT ANGIO CHEST 07/11/2019 6:41 PM FINDINGS: Lungs: Unremarkable. No consolidation. Pleural spaces: Unremarkable. No pleural effusion. No pneumothorax. Heart/Mediastinum: Unremarkable. No cardiomegaly. Bones/joints: Unremarkable. IMPRESSION: No acute findings.
[2025-02-10 21:51] LABS: D-Dimer 0.45 ug/mL (0.0-0.5)
[2025-02-10] MEDS: KETOROLAC 30MG/ML VIAL 30 MG IV (22:26)
[2025-02-10 22:28] VITALS: BP 97/63; PULSE 72; RESP 16; O2SAT 99
[2025-02-10 23:52] VITALS: BP 130/90; PULSE 82; RESP 18; O2SAT 99
[2025-02-11 00:17] LABS: Troponin I < 0.01 ng/ml (0.00-0.034)
[2025-02-11 00:24] VITALS: BP 107/67; PULSE 74; RESP 16; TEMP 37.2; O2SAT 99
== END 2025-02-11 00:33 | disposition home or self-care (01) ==
PROVIDERS: Emergency Provider Student in an Organized Health Care Education/Training Program; PCP Internal Medicine Adolescent Medicine
DX: R10.13 Epigastric pain (principal); R07.9 Chest pain, unspecified; K80.20 Calculus of gallbladder without cholecystitis without obstruction
CPT/HCPCS: 71046; 80053; 83690; 84484; 84702; 85025; 85378; 93005; 96374; 99285; J1885

== ENCOUNTER 2025-02-13 06:00 | Day surgery (SDC) | payer OTHER, SELFPAY ==
[2025-02-12 14:05] VITALS: BMI 26.6
[2025-02-13] VITALS (11 sets, daily range): BP systolic 112–147; BP diastolic 66–94; PULSE 60–99; RESP 16–18; TEMP 36.1–38; O2SAT 97–100
[2025-02-13] MEDS: LACTATED RINGERS 1000ML 1,000 ML 25 ML IV (06:26)
--- NOTE | 2025-02-13 06:46 | EXP.ANES.CKL ---
[facility] Disclaimer: The information contained in this section may have been updated after the patient was seen, as this information can be updated by other users. Medical History Endometriosis determined by laparoscopy stage 1 Bicornuate uterus Request for sterilization Mild acid reflux Hypothyroidism Surgical History H/O bilateral salpingectomy 07-04-24 Dr. 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 Have you lived/traveled outside [place] in past 30 days?: No Contact w/someone who lives/traveled outside US past 30 days?: No Exposure to someone with infectious disease in past 14 days?: No Do you have a fever (greater than 100.4 F or 38 C)?: No Have you tested positive for COVID-19?: No Exposed to someone with COVID-19 in past 14 days?: No Do you have a sore throat?: No Do you have a cough?: No Do you have any weakness?: No Are you experiencing any nausea/vomitting?: No Do you have any diarrhea?: No Are you experiencing any unusual bleeding?: No Do you have any muscle aches/pain?: No Do you have any abdominal pain?: No Are you experiencing loss of taste or smell?: No [facility] Anesthesia Checklist Patient Identification Patient Identification: Verbal (Name & ) Structural Data Admitted From: Home Planned Operative Procedure/s: lap bob Consent for Planned Operative Procedure(s) Verified: Yes NPO Status Verified Time NPO: 00:00 Additional verifications Anesthesia Reactions: No Hx Blood Transfusions: No Blood Transfusion Reaction: No Airway Assessment Mallampati Score:: Class II C-Spine Mobility Assessed: Yes TMJ Mobility Assessed: Yes Dentition: Good Dentition Neurological Assessment Level of Consciousness: Awake, Alert and Appropriate Anesthesia Plan Anesthesia Risk discussed: Yes Anesthesia Plan: Verified ASA Class: II Anesthesia Type: General
[2025-02-13] MEDS: LIDOCAINE 1% 20ML MDV 20 ML (07:32)
--- NOTE | 2025-02-13 08:10 | EXP.OP.NOTE ---
Date of procedure: 02/13/25 Pre-op Diagnosis:: Symptomatic gallstones, chronic calculous cholecystitis Post-op Diagnosis:: Same Procedure performed:: Laparoscopic cholecystectomy Surgeon:: Ben Mayfield MD DIRECTOR PUBLIC POLICY:: Talha Montelongo Anesthesia: BOBBI Estimated blood loss (mL): 15 Clinical Note:: Patient presents for cholecystectomy. I had seen her about a year ago for symptoms of atypical chest pain. She has had symptoms of occasional sudden onset of chest pain and pressure often radiating into the mid back and shoulder area with some associated belching. She had a gallbladder ultrasound which revealed gallstones including a stone in the neck of the gallbladder. She has also had relatively longstanding history of GERD type symptoms and has been on Protonix for several years. At the time, a year ago, she has been hesitant to proceed with gallbladder surgery unless needed. I had her undergo an upper GI which revealed some findings of mild esophageal dysmotility and gastroesophageal reflux with probable fundic gland polyps. She has seen gastroenterology and recommendations were for consideration of upper endoscopy. However her symptoms transiently improved and she has not undergone this as of yet. On 02/10/2025 she had sudden onset of severe chest pain occurring about 30 minutes postprandially after eating a stromboli. In the emergency department she was found to be tender in the epigastrium and right upper quadrant. She underwent thorough evaluation. She did have [id number] ultrasound performed. This revealed gallstones. Possible admission was offered to the patient but her symptoms improved and she elected for expeditious outpatient follow-up. She does have a desire to proceed with cholecystectomy at this time. . Operative findings:: She had distended gallbladder with omental adhesions. There were multiple small to moderate stones. Operative note:: Consent was obtained patient was taken to the operating room. She was given preoperative intravenous antibiotics. In the operating room she was placed in the supine position. General anesthesia was induced via endotracheal tube. Abdomen was prepped and draped in the standard surgical fashion. Subumbilical skin incision was made and while performing abdominal wall lift Veress needle was inserted. CO2 pneumoperitoneum was achieved to 15 mmHg. 5 mm optical trocar was inserted at the umbilicus. Intraperitoneal contents were visualized. She was positioned in reverse Trendelenburg left side down. A couple of 5 mm trocars were inserted in the right upper abdomen. 11 mm trocar was inserted in the epigastrium. Gallbladder was grasped retracted anteriorly and superiorly over the dome of the liver. There was some omental adhesions to the gallbladder which were taken down using blunt dissection. Upon reaching the infundibulum it was retracted anterior laterally. Visceral peritoneum at the neck of the gallbladder was incised. Dissection was carried out identifying the cystic duct and cystic artery and the critical view of safety. The cystic duct was isolated, multiply clipped, and sharply divided. Cystic artery was carefully coagulated with ultrasonic harmonic fredi and divided. The gallbladder was dissected free from the liver in a retrograde fashion using ultrasonic harmonic fredi. Gallbladder was placed within an Endo Catch retrieval device and removed from the peritoneal cavity via the epigastric trocar site which required some minor stretching of the fascial incision for delivery. Gallbladder fossa was inspected for hemostasis which was assured. Limited irrigation and suctioning was performed. The epigastric trocar site fascia was closed using the Holger-Alka laparoscopic fascial closure device with a couple of 0 Vicryl sutures. Trocars were then removed and CO2 pneumoperitoneum was evacuated. Local anesthetic was infiltrated. Skin incisions were closed with 4-0 Monocryl in a subcuticular fashion. A couple 5-0 fast-absorbing plain gut were placed in right upper quadrant trocar site. . Condition: stable Disposition: PACU Complications:: None immediately apparent
--- NOTE | 2025-02-13 08:15 | P.PNANES_ITS ---
[facility] Anesthesia Record Part I Anesthesia Record I Intake, IV Amount: 1,200 Hydration: Adequate Estimated blood loss (mL): 10 Urine output (mL): 0 Blood Products used (#): none Blood Pressure: 147/86 SaO2: 99 Pulse Rate: 95 Airway Patency: Patent Respiratory Rate: 16 Temperature: 98.6 F Patient is:: Drowsy and Stable Stable to PACU at:: 08:15
[2025-02-13] MEDS: MORPHINE 2MG/ML SYRINGE 2 MG IV (08:21)
--- NOTE | 2025-02-13 10:41 | P.PNANES_ITS ---
[facility] Anesthesia Record Part II Anesthesia Record Part II Discharge Time: 08:45 Destination: Surgical Day Care (OP Surgery) PACU nurse assessment reviewed?: Yes Patient Condition:: Good Anesthesia Complications:: None Swallowing reflex intact?: Yes Airway Patency: Patent Cyanosis?: No Blood Pressure: 127/82 SaO2: 98 Respiratory Rate: 17 Pulse Rate: 79 Temperature: 98.6 F Mental Status: Alert & Oriented Pain level:: 0 Nausea and/or vomitting:: None Intake, IV Amount: 0 Hydration: Adequate
== END 2025-02-13 09:30 | disposition home or self-care (01) ==
PROVIDERS: PCP Internal Medicine Adolescent Medicine; Visit Provider Surgery
PROC: 0FT44ZZ Resection of Gallbladder, Percutaneous Endoscopic Approach (ICD-10-PCS; CPT 47562; principal; 2025-02-13 07:30)
DX: K80.10 Calculus of gallbladder with chronic cholecystitis without obstruction (principal); E03.9 Hypothyroidism, unspecified; K21.9 Gastro-esophageal reflux disease without esophagitis; Z90.722 Acquired absence of ovaries, bilateral; Z79.899 Other long term (current) drug therapy
CPT/HCPCS: 47562; 96374; J1100; J1885; J2003; J2250; J2270; J2405; J2704; J2795; J3010; J7120